=== PATIENT | male | born 1970 | race Hispanic/Latino ===

== ENCOUNTER 2019-10-18 15:24 | Inpatient (IN) | payer SELFPAY ==
--- NOTE | 2019-10-18 16:10 | RAD REPORT ---
EXAM DESCRIPTION: RAD - Chest Single View - 10/18/2019 4:02 pm CLINICAL HISTORY: CHEST PAIN COMPARISON: No comparisons TECHNIQUE: AP portable chest image was obtained 10/18/2019 4:02 pm . FINDINGS: Lung volumes are low. Right hemidiaphragm is elevated. No peripheral mass or consolidation . Large body habitus, portable technique and low lung volumes accentuate vasculature and lung marking s. Early failure, volume overload and interstitial infiltrates are easily masked. Heart size is normal. Trachea is midline. No measurable pleural effusion and no pneumothorax. No acu te bony abnormality seen. No acute aortic findings suspected. IMPRESSION: Limited portable study without peripheral mass or consolidation. Heart, vasculature and lung markings are all accentuated by the limitations of this examination. Robert y failure, volume overload and interstitial infiltrate can be masked.
[2019-10-18] MEDS ORDERED: MORPHINE 4 MG/ML SYR ONE (16:16)
[2019-10-18] MEDS ORDERED: MAGNE/ALUM HYDROXD 30 ML UCUP ONE (16:16)
[2019-10-18] MEDS ORDERED: ONDANSETRON 4 MG/2 ML VIAL ONE (16:16)
[2019-10-18] MEDS ORDERED: LIDOCAINE VISCOUS 2% SOLN 15 ML UDC ONE (16:16)
[2019-10-18 16:18] LABS: Absolute Lymphocytes (CBC) 0.7 K/uL (0.7-4.9); Basophils % 0.4 % (0-1.3); Hematocrit 46.7 % (39.6-49.0); Lymphocytes % 5.5 % (15.3-44.8); MPV 9.4 fL (7.6-11.3)
--- NOTE | 2019-10-18 16:35 | RAD REPORT ---
EXAM DESCRIPTION: US - Abdomen Exam Limited - 10/18/2019 4:21 pm CLINICAL HISTORY: ABD PAIN COMPARISON: No comparisons FINDINGS: No gallstones, sludge or other abnormalities within the gallbladder lumen. There is no wal l thickening or pericholecystic fluid. No common duct stone or biliary tree dilatation identified. IMPRESSION: Normal gallbladder and biliary tree ultrasound.
[2019-10-18 16:38] LABS: ALT/SGPT 37 U/L (12-78); AST/SGOT 34 U/L (15-37); Albumin 4.1 g/dL (3.4-5.0); Alkaline Phosphatase 84 U/L (45-117); BUN Blood Urea Nitrogen 15 mg/dL (7-18); Bicarbonate 24 mmol/L (21-32); Bilirubin Direct 0.2 mg/dL (0-0.2); Bilirubin Total 0.5 mg/dL (0.2-1.0); Glucose Level 145 mg/dL (74-106); Lipase 69 U/L (73-393); NT PRO-BNP 140 pg/mL (<125); Potassium 3.8 mmol/L (3.5-5.1); Protein, Total 8.6 g/dL (6.4-8.2); Sodium Level 134 mmol/L (136-145); Troponin (Emerg Dept Use Only) < 0.02 ng/mL (0.0-0.045)
--- NOTE | 2019-10-18 17:13 | RAD REPORT ---
EXAM DESCRIPTION: CT - Abdomen Pelvis W Contrast - 10/18/2019 5:06 pm CLINICAL HISTORY: ABD PAIN COMPARISON: No comparisons TECHNIQUE: Biphasic, helical CT imaging of the abdomen and pelvis was performed following 100 ml non -ionic IV contrast. No oral contrast given. All CT scans are performed using dose optimization technique as appropriate and may include automated exposure control or mA/KV adjustment according to patient size. FINDINGS: No suspicious findings in the lung bases. Scarring or atelectasis changes are present. Hea rt size is upper normal. No pericardial effusion. Liver is enlarged with a prominent left lobe. There is a prominent nodular contour pattern. No focal liver lesion is identifiable. No portal vein thrombus seen. Spleen and pancreas show no acute finding s. Numerous gallstones are present without acute cholecystitis CT findings. No biliary tree dilatatio n. Symmetric renal function is seen with no hydronephrosis or suspicious renal mass. No pyelonephritis o r acute parenchymal process. No bladder abnormalities. No adrenal abnormalities. No dilated bowel loops or bowel wall thickening. Appendix is not clearly identified. Appendicitis is not suspected. No free air, free fluid or inflammatory stranding. No hernia, mass or bulky lymphaden opathy. No suspicious bony findings. IMPRESSION: Cirrhosis or diffuse hepatic parenchymal disease with no focal liver lesions seen. Varices are seen in the upper abdomen but no ascites identified. Bowel gas pattern is nonspecific. No obstruction or acute finding seen. Mild enteritis is still possi ble. Multi stone cholelithiasis without CT findings of acute cholecystitis. No biliary dilatation. No acute finding.
[2019-10-18 17:31] LABS: Blood Morphology Comment NOT SEEN (NOT SEEN); Platelet Estimate ADEQ; Urine White Blood Cell Casts OK
[2019-10-18] MEDS ORDERED: MEPERIDINE HCL 50 MG/ML ONE (17:38)
--- NOTE | 2019-10-18 17:38 | ER ---
Nurse's Notes [facility] Name: Blane Marquez Age: 49 yrs Sex: Male : 1970 Arrival Date: 10/18/2019 Time: 15:25 Bed 27 Private MD: Diagnosis: Cholelithiasis;Intractable pain;Chest pain, unspecified Presentation: 10/18 15:37 Presenting complaint: Patient states: Chest pain started last night. Transition of ca1 care: patient was not received from another setting of care. Onset of symptoms was October 18, 2019. Risk Assessment: Do you want to hurt yourself or someone else? Patient reports no desire to harm self or others. Initial Sepsis Screen: Does the patient meet any 2 criteria? No. Patient's initial sepsis screen is negative. Does the patient have a suspected source of infection? No. Patient's initial sepsis screen is negative. Care prior to arrival: None. 15:37 Method Of Arrival: Wheelchair ca1 15:37 Acuity: MICHA 3 ca1 Triage Assessment: 16:21 General: Appears uncomfortable, Behavior is fussy. Pain: Complains of pain in abdomen ls4 Pain currently is 10 out of 10 on a pain scale. Cardiovascular: Reports chest pain, Denies diaphoresis, fatigue, lightheadedness, nausea, palpitations, shortness of breath, syncope, vomiting, Heart tones S1 S2 Capillary refill < 3 seconds Patient's skin is warm and dry. Rhythm is regular. Respiratory: Respiratory effort is even, unlabored, Respiratory pattern is regular, Breath sounds are clear bilaterally. GI: Abdomen is round non-distended. : No deficits noted. Derm: No deficits noted. Musculoskeletal: No deficits noted. Historical: - Allergies: 16:33 No Known Allergies; ls4 - Home Meds: 16:33 None [Active]; ls4 - PMHx: 16:33 None; ls4 - Immunization history:: Adult Immunizations up to date. - Coronavirus screen:: The patient has NOT traveled to [place] in the past 14 days. The patient has NOT had contact with known/suspected case of Coronavirus?. - Family history:: not pertinent. - Social history:: Smoking status: Patient denies any tobacco usage or history of. - Ebola Screening: : Patient negative for fever greater than or equal to 101.5 degrees Fahrenheit, and additional compatible Ebola Virus Disease symptoms Patient denies exposure to infectious person Patient denies travel to an Ebola-affected area in the 21 days before illness onset No symptoms or risks identified at this time. - Hospitalizations: : No recent hospitalization is reported. Screenin:56 Abuse screen: Denies threats or abuse. Denies injuries from another. Nutritional ls4 screening: No deficits noted. Tuberculosis screening: No symptoms or risk factors identified. Fall Risk None identified. Assessment: 15:30 General: Appears uncomfortable, Behavior is fussy. ls4 15:30 Pain: Complains of pain in abdomen Pain does not radiate. Pain Pain began suddenly, 1 ls4 day ago. Is continuous, Alleviated by nothing. Aggravated by eating, drinking, Noted to be guarding, moaning, restless. Neuro: No deficits noted. Cardiovascular: No deficits noted. Respiratory: No deficits noted. GI: Abdomen is round non-distended, obese, Bowel sounds present X 4 quads. Abd is soft Abdomen is tender to palpation in right upper quadrant, left upper quadrant and right lower quadrant. : No deficits noted. Derm: No deficits noted. 17:00 Reassessment: Patient and/or family updated on plan of care and expected duration. Pain ls4 level reassessed. Patient is alert, oriented x 3, equal unlabored respirations, skin warm/dry/pink. 18:00 Reassessment: Patient and/or family updated on plan of care and expected duration. Pain ls4 level reassessed. Patient is alert, oriented x 3, equal unlabored respirations, skin warm/dry/pink. 19:00 Reassessment: Patient and/or family updated on plan of care and expected duration. Pain ls4 level reassessed. Patient is alert, oriented x 3, equal unlabored respirations, skin warm/dry/pink. Patient states symptoms have improved. Vital Signs: 15:39 BP 150 / 86; Pulse 93; Resp 19 S; Pulse Ox 96% on R/A; ca1 16:45 BP 125 / 83; Pulse 88; Resp 16; Temp 99.0(O); Pulse Ox 97% on R/A; Pain 5/10; ls4 17:50 BP 130 / 68; Pulse 86; Resp 14; Pulse Ox 97% on R/A; Pain 5/10; ls4 18:30 BP 132 / 64; Pulse 79; Resp 16; Pulse Ox 95% on R/A; Pain 4/10; ls4 19:43 BP 137 / 82; Pulse 88; Resp 23; Pulse Ox 96% on R/A; Pain 8/10; ls4 ED Course: 15:25 Patient arrived in ED. rg4 15:29 Luis Enrique Tamez MD is Attending Physician. rn 15:37 Ivette Spears, JUAN is Primary Nurse. ls4 15:37 Arm band placed on right wrist. EKG completed in triage. Results shown to MD. ca1 15:38 Triage completed. ca1 15:48 Radiology exam delayed due to PT IS IN ULTRASOUND. az 15:56 labs and medication delayed. pt in ultrasound. ls4 15:56 Patient has correct armband on for positive identification. personal financial advisor on. Pulse ls4 ox on. NIBP on. Verbal reassurance given. Diet: Patient is NPO. 15:56 No provider procedures requiring assistance completed. Patient maintains SpO2 ls4 saturation greater than 95% on room air. 16:05 Initial lab(s) drawn, by me, sent to lab. Inserted saline lock: 20 gauge in left tm3 antecubital area, using aseptic technique. 16:17 Basic Metabolic Panel Sent. ls4 17:37 Gris Grimes MD is Hospitalizing Provider. rn 18:27 CT Abd/Pelvis - IV Contrast Only Sent. ls4 19:45 Patient admitted, IV remains in place. ls4 Administered Medications: 16:15 Drug: morphine 4 mg Route: IVP; Site: left forearm; ls4 16:45 Follow up: Response: No adverse reaction; No change in condition ls4 16:15 Drug: Zofran 4 mg Route: IVP; Site: left forearm; ls4 16:45 Follow up: Response: No adverse reaction; Marked relief of symptoms ls4 16:17 Drug: GI Cocktail without - (Maalox Suspension 30 ml, Lidocaine Liquid 2 % 15 ls4 ml) Route: PO; 16:30 Follow up: Response: No adverse reaction ls4 17:35 Drug: Demerol 50 mg Route: IVP; Site: right antecubital; ls4 18:00 Follow up: Response: No adverse reaction ls4 18:00 Drug: Zosyn 3.375 grams Route: IVPB; Infused Over: 60 mins; Site: right antecubital; ls4 10/19 01:31 Follow up: IV Status: Completed infusion; IV Intake: 100ml ls4 Intake: : IV: 100ml; Total: 100ml. ls4 Outcome: 10/18 17:37 Decision to Hospitalize by Provider. rn 19:44 Admitted to Tele accompanied by tech, via stretcher, room 429, Report called to ls4 JENNIFER MARTINEZ 19:44 Condition: good 19:44 Discharge instructions given to patient, family, Instructed on discharge instructions, follow up and referral plans. medication usage, Demonstrated understanding of instructions, follow-up care, medications. 20:28 Patient left the ED. ls4 Signatures: Darek Sandoval tm3 Luis Enrique Tamez MD MD rn Garcia, Rubi rg4 Shawanda Roberts Lisa, RN RN ls4 Zabrina Singleton RN RN ca1 Corrections: (The following items were deleted from the chart) 10/19 01:31 10/18 19:00 IV Status: Completed infusion 4 4
--- NOTE | 2019-10-18 17:38 | EDPHYS ---
Physician Documentation [facility] Name: Blane Marquez Age: 49 yrs Sex: Male : 1970 Arrival Date: 10/18/2019 Time: 15:25 Bed 27 Private MD: ED Physician Luis Enrique Tamez HPI: 10/18 15:37 This 49 yrs old Male presents to ER via Unassigned with complaints of Chest rn Pain. 15:37 The patient or guardian reports chest pain that is located primarily in the substernal rn area. The patient or guardian reports chest pain that is located primarily in the epigastric area. Onset: last night. The pain does not radiate. Associated signs and symptoms: Pertinent positives: abdominal pain, nausea, vomiting, Pertinent negatives: cough, palpitations, recent travel, shortness of breath. The chest pain is described as sharp, stabbing. Duration: The patient or guardian reports multiple episodes, that are intermittent. Modifying factors: The symptoms are alleviated by nothing. the symptoms are aggravated by palpation of area. Severity of pain: At its worst the pain was moderate in the emergency department the pain is unchanged. The patient has not experienced similar symptoms in the past. Reports chest pain and abd pain that began last night, reports intermittent, sharp, non-radiating, not really helped with antacid. No trauma. No fever/cough/sob. . Historical: - Allergies: 16:33 No Known Allergies; ls4 - Home Meds: 16:33 None [Active]; ls4 - PMHx: 16:33 None; ls4 - Immunization history:: Adult Immunizations up to date. - Coronavirus screen:: The patient has NOT traveled to [place] in the past 14 days. The patient has NOT had contact with known/suspected case of Coronavirus?. - Family history:: not pertinent. - Social history:: Smoking status: Patient denies any tobacco usage or history of. - Ebola Screening: : Patient negative for fever greater than or equal to 101.5 degrees Fahrenheit, and additional compatible Ebola Virus Disease symptoms Patient denies exposure to infectious person Patient denies travel to an Ebola-affected area in the 21 days before illness onset No symptoms or risks identified at this time. - Hospitalizations: : No recent hospitalization is reported. ROS: 15:37 Constitutional: Negative for fever, chills, and weight loss, Eyes: Negative for injury, rn pain, redness, and discharge, Neck: Negative for injury, pain, and swelling, Cardiovascular: + chest pain Respiratory: Negative for shortness of breath, cough, wheezing, and pleuritic chest pain, Abdomen/GI: + abd pain/nausea/vomiting MS/Extremity: Negative for injury and deformity, Skin: Negative for injury, rash, and discoloration, Neuro: Negative for headache, weakness, numbness, tingling, and seizure. Exam: 15:37 Constitutional: This is a well developed, well nourished patient who is awake, alert, rn appears uncomfortable, intermittent epressions of pain. Head/Face: Normocephalic, atraumatic. Eyes: Pupils equal round and reactive to light, extra-ocular motions intact. Lids and lashes normal. Conjunctiva and sclera are non-icteric and not injected. Cornea within normal limits. Periorbital areas with no swelling, redness, or edema. Cardiovascular: Regular rate and rhythm. No pulse deficits. Respiratory: No increased work of breathing, no retractions or nasal flaring. Abdomen/GI: soft, + RUQ/epigastric tenderness MS/ Extremity: Pulses equal, no cyanosis. Neurovascular intact. Full, normal range of motion. Equal circumference. Neuro: Awake and alert, GCS 15, oriented to person, place, time, and situation. Cranial nerves II-XII grossly intact. Motor strength 5/5 in all extremities. Sensory grossly intact. 15:42 ECG was reviewed by the Attending Physician. rn Vital Signs: 15:39 BP 150 / 86; Pulse 93; Resp 19 S; Pulse Ox 96% on R/A; ca1 16:45 BP 125 / 83; Pulse 88; Resp 16; Temp 99.0(O); Pulse Ox 97% on R/A; Pain 5/10; ls4 17:50 BP 130 / 68; Pulse 86; Resp 14; Pulse Ox 97% on R/A; Pain 5/10; ls4 18:30 BP 132 / 64; Pulse 79; Resp 16; Pulse Ox 95% on R/A; Pain 4/10; ls4 19:43 BP 137 / 82; Pulse 88; Resp 23; Pulse Ox 96% on R/A; Pain 8/10; ls4 MDM: 15:29 Patient medically screened. rn 17:33 Differential diagnosis: acute pericarditis, coronary artery disease chest wall pain, rn cholecystitis, Cholelithiasis costochondritis, esophagitis, gastritis, gastroesophageal reflux disease (GERD), pericarditis. Data reviewed: vital signs, nurses notes, lab test result(s), radiologic studies, CT scan, ultrasound, and as a result, I will admit patient. Counseling: I had a detailed discussion with the patient and/or guardian regarding: the historical points, exam findings, and any diagnostic results supporting the discharge/admit diagnosis, lab results, radiology results, the need for further work-up and treatment in the hospital. Response to treatment: There is no appreciated change of the patient's symptoms at this time, and as a result, I will admit patient. 17:35 ED course: Pt's pain not controlled, still in a lot of pain, U/S and ct abdomen show rn cholelithiasis without overt cholecystitis, mild elevation of WBC, trop and ecg unremarkable. Consulted with Dr. Felix, will admit to hospitalist for further w/u and consult Dr. Felix, who recommends zosyn and will eval patient. . 10/18 15:35 Order name: Basic Metabolic Panel; Complete Time: 16:47 10/18 15:35 Order name: CBC with Diff; Complete Time: 17:35 10/18 15:35 Order name: LFT's; Complete Time: 16:47 10/18 15:35 Order name: NT PRO-BNP; Complete Time: 16:47 10/18 15:35 Order name: Troponin (emerg Dept Use Only); Complete Time: 16:47 rn 10/18 15:35 Order name: Lipase; Complete Time: 16:47 rn 18 15:35 Order name: XRAY Chest (1 view) rn 10/18 15:35 Order name: US Abdomen Limited rn 10/18 15:35 Order name: CT Abd/Pelvis - IV Contrast Only rn 10/18 17:32 Order name: RAD; Complete Time: 17:35 EDMI 10/18 17:32 Order name: US; Complete Time: 17:35 EDMI 10/18 17:32 Order name: CBC Smear Scan; Complete Time: 17:35 EDMI 10/18 19:06 Order name: CT; Complete Time: 07:07 EDMI 10/18 15:35 Order name: EKG; Complete Time: 15:37 rn 10/18 15:35 Order name: Cardiac monitoring; Complete Time: 17:59 rn 10/18 15:35 Order name: EKG - Nurse/Tech; Complete Time: 17:59 rn 10/18 15:35 Order name: IV Saline Lock; Complete Time: 17:59 rn 10/18 15:35 Order name: Labs collected and sent; Complete Time: 17:59 rn 10/18 15:35 Order name: O2 Per Protocol; Complete Time: 17:59 rn 10/18 15:35 Order name: O2 Sat Monitoring; Complete Time: 17:59 rn EC:42 Rate is 82 beats/min. Rhythm is regular. QRS Regan is Normal. CO interval is normal. QRS rn interval is normal. QT interval is normal. No Q waves. T waves are Normal. No ST changes noted. Clinical impression: Normal ECG. Interpreted by me. Reviewed by me. Administered Medications: 16:15 Drug: morphine 4 mg Route: IVP; Site: left forearm; ls4 16:45 Follow up: Response: No adverse reaction; No change in condition ls4 16:15 Drug: Zofran 4 mg Route: IVP; Site: left forearm; ls4 16:45 Follow up: Response: No adverse reaction; Marked relief of symptoms ls4 16:17 Drug: GI Cocktail without - (Maalox Suspension 30 ml, Lidocaine Liquid 2 % 15 ls4 ml) Route: PO; 16:30 Follow up: Response: No adverse reaction ls4 17:35 Drug: Demerol 50 mg Route: IVP; Site: right antecubital; ls4 18:00 Follow up: Response: No adverse reaction ls4 18:00 Drug: Zosyn 3.375 grams Route: IVPB; Infused Over: 60 mins; Site: right antecubital; ls4 10/19 01:31 Follow up: IV Status: Completed infusion; IV Intake: 100ml ls4 Disposition: 10/18/19 17:37 Hospitalization ordered by Gris Grimes for Observation. Preliminary diagnosis are Cholelithiasis, Intractable pain, Chest pain, unspecified. - Bed requested for Telemetry/MedSurg (observation). - Status is Observation. ls4 - Condition is Stable. - Problem is new. - Symptoms are unchanged. Signatures: Dispatcher [employer] EDMS Luis Enrique Tamez MD MD rn Stewart, Lisa, RN RN ls4 Zabrina Singleton RN RN [facility] Olegario Sommer dh4 Corrections: (The following items were deleted from the chart) 10/18 18:43 17:37 Hospitalization Ordered by Gris Grimes MD for Observation. Preliminary diagnosis dh4 is Cholelithiasis; Intractable pain; Chest pain, unspecified. Bed requested for Telemetry/MedSurg (observation). Status is Observation. Condition is Stable. Problem is new. Symptoms are unchanged. rn 20:28 18:43 10/18/2019 17:37 Hospitalization Ordered by Gris Grimes MD for Observation. ls4 Preliminary diagnosis is Cholelithiasis; Intractable pain; Chest pain, unspecified. Bed requested for Telemetry/MedSurg (observation). Status is Observation. Condition is Stable. Problem is new. Symptoms are unchanged. 4
[2019-10-18] MEDS ORDERED: NACHLORIDE 0.45% 0 ML IV ONE (17:40)
[2019-10-18] MEDS ORDERED: NA CHLORIDE 0.9% 1,000 ML ONE (17:40)
[2019-10-18] MEDS ORDERED: PIPER/TAZO/NS 3.375gm 3.375 GM/100 ML BAG ONE (18:11)
--- NOTE | 2019-10-18 18:35 | P.HP ---
Certification for Inpatient Patient admitted to: Inpatient With expected LOS: >2 Midnights Patient will require the following post-hospital care: None Practitioner: I am a practitioner with admitting privileges, knowledge of patient current condition, hospital course, and medical plan of care. Services: Services provided to patient in accordance with Admission requirements found in Title 42 Section 412.3 of the Code of Federal Regulations Patient History Date of Service: 10/18/19 Primary Care Provider: None Reason for admission: Abdominal pain History of Present Illness: Patient is a 49-year-old male with no significant past medical history chronic smoker and drinker who comes into the hospital with sudden onset of generalized abdominal pain after eating. Patient's pain radiates to the back right upper quadrant and to the chest. Patient's symptoms are constant moderate progressively worsening. Patient does report multiple episodes of nausea and vomiting. 1 episode of diarrhea. No ill contacts. No usual foods or travel outside the country. No fever chills. Patient came into the ER for further evaluation. In the ER his vital signs were stable he was afebrile. His workup revealed elevated white blood cell count. CT scan showed cirrhosis and cholelithiasis. Abdominal ultrasound did not show any biliary dilatation. General surgery was consulted by the ER recommended IV antibiotics and admission for further observation. When seen in the ER he was awake alert oriented x3 in some moderate pain. His pain was not able to be controlled despite Demerol and morphine. Home medications list reviewed: Yes - Past Medical/Surgical History Past Medical History: Patient denies medical history -: Surgery on the foot after a brown recluse spider bite - Family History Mother -: Heart disease, Diabetes, Other (see notes) ( of aortic aneurysm) - Social History Smoking Status: Light Tobacco smoker (1-9 cigarettes/day) Smoking therapy provided: Yes Alcohol use: Yes Place of Residence: Home Review of Systems 10-point ROS is otherwise unremarkable Gastrointestinal: As per HPI Physical Examination - Vital Signs Blood Pressure: 150/86 Pulse: 93 Respirations: 19 Pulse Ox (%): 96 - Physical Exam General: Alert, Oriented x3, Moderate distress, Obese HEENT: Atraumatic, PERRLA, Other (Dry mucous membranes), EOMI, Sclerae nonicteric Neck: Supple, JVD not distended Respiratory: Clear to auscultation bilaterally, Normal air movement Cardiovascular: No edema, Normal pulses, Regular rate/rhythm, Normal S1 S2 Gastrointestinal: Normal bowel sounds, Soft and benign, Non-distended, No rebound, No guarding, Tenderness Musculoskeletal: No clubbing, No erythema, No tenderness Integumentary: No rashes, No erythema Neurological: Normal speech, Normal strength at 5/5 x4 extr, Normal tone, Cranial nerves 3-12 intact, Normal affect - Studies Laboratory Data (last 24 hrs) 10/18/19 16:05: WBC 11.9 H, Hgb 15.3, Hct 46.7, Plt Count 160 10/18/19 16:05: Sodium 134 L, Potassium 3.8, BUN 15, Creatinine 0.82, Glucose 145 H, Total Bilirubin 0.5, AST 34, ALT 37, Alkaline Phosphatase 84, Lipase 69 L Imagings Data: IMPRESSION: Cirrhosis or diffuse hepatic parenchymal disease with no focal liver lesions seen. Varices are seen in the upper abdomen but no ascites identified. Bowel gas pattern is nonspecific. No obstruction or acute finding seen. Mild enteritis is still possible. Multi stone cholelithiasis without CT findings of acute cholecystitis. No biliary dilatation. No acute finding. IMPRESSION: Normal gallbladder and biliary tree ultrasound Assessment and Plan - Plan 1. Acute intractable generalized abdominal pain. Likely due to cholelithiasis and acute cholecystitis. Will start on Zosyn. IV fluids and keep NPO for now. General surgery has been consulted. 2. Chest pain. Likely atypical will obtain serial cardiac enzymes. 3. Hyperglycemia without diagnosis of diabetes. Patient is at risk for diabetes will check hemoglobin A1c. 4. Alcoholic liver cirrhosis. Counseled CT scan shows cirrhosis 5. Alcohol dependence. Start on multi vitamins 6. Nicotine dependence with cigarette smoking continuous. Counseled for less than 10 min 7. Obesity counseled DVT prophylaxis with SCDs. No chemical anticoagulation due to possible surgery in a.m. Discharge Plan: Home Plan to discharge in: 48 Hours - Advance Directives Does patient have a Living Will: No Does patient have a Durable POA for Healthcare: No - Code Status/Comfort Care Code Status Assessed: Yes
[2019-10-18] MEDS ORDERED: ONDANSETRON 4 MG/2 ML VIAL IV PRN (20:30)
[2019-10-18] MEDS ORDERED: MORPHINE 2 MG/ML SYR IV PRN (20:30)
[2019-10-18] MEDS ORDERED: LORazepam 2 MG/ML VIAL IV PRN (20:30)
[2019-10-18 20:36] VITALS: BMI 32.1
[2019-10-18] MEDS: D5 0.45 NS 1,000 ML IV SCH (20:50)
[2019-10-18] MEDS: MORPHINE 2 MG/ML SYR IV PRN (21:00)
[2019-10-18] MEDS ORDERED: INSULIN -REGULAR HUMAN 50 UNIT/0.5 ML ML SQ SCH (21:00)
[2019-10-18] MEDS ORDERED: KCL 20 MEQ/100 mL IVPB 20 MEQ/100 ML BAG IV SCH (22:00)
[2019-10-19] MEDS ORDERED: NA CHLORIDE 0.9% 100 ML IV ONE (00:45)
[2019-10-19] MEDS ORDERED: PIPERACIL/TAZO 3.375 GM VIAL IV ONE (00:50)
[2019-10-19] MEDS ORDERED: PIPER/TAZO/NS 3.375gm 3.375 GM/100 ML BAG IVPB SCH (01:00)
[2019-10-19] MEDS: MORPHINE 2 MG/ML SYR IV PRN ×5 (01:02→21:30)
[2019-10-19] MEDS: ACETAMINOPHEN 650MG/RECT SUPP RECT PRN (01:02)
[2019-10-19] MEDS: D5 0.45 NS 1,000 ML IV SCH ×3 (05:08→20:30)
[2019-10-19] MEDS: INSULIN -REGULAR HUMAN 50 UNIT/0.5 ML ML SQ SCH ×4 (05:08→17:35)
[2019-10-19 05:59] LABS: Basophils % 0.5 % (0-1.3); Hematocrit 45.3 % (39.6-49.0); Lymphocytes % 10.5 % (15.3-44.8); MPV 10.4 fL (7.6-11.3); RBC Red Blood Cell Count 4.75 M/uL (4.33-5.43)
[2019-10-19 06:37] LABS: ALT/SGPT 39 U/L (12-78); AST/SGOT 40 U/L (15-37); Albumin 3.7 g/dL (3.4-5.0); Alkaline Phosphatase 67 U/L (45-117); BUN Blood Urea Nitrogen 10 mg/dL (7-18); Bicarbonate 25 mmol/L (21-32); Bilirubin Total 1.1 mg/dL (0.2-1.0); Glucose Level 109 mg/dL (74-106); Magnesium 2.4 mg/dL (1.8-2.4); Potassium 3.9 mmol/L (3.5-5.1); Protein, Total 7.6 g/dL (6.4-8.2); Sodium Level 135 mmol/L (136-145); Troponin I < 0.02 ng/mL (0.0-0.045)
[2019-10-19] MEDS: FOLIC ACID 1 MG TABLET PO SCH (07:23)
[2019-10-19] MEDS: THIAMINE HCL 100 MG TABLET PO SCH (07:23)
--- NOTE | 2019-10-19 07:51 | EKG ---
Test Date: 2019-10-18 Test Time: 15:38:40 Hog Killer: ISABELLA MEASUREMENT RESULTS: Intervals: Rate: 82 ME: 152 QRSD: 90 QT: 402 QTc: 469 [place]: P: 45 ME: 152 QRS: -19 T: 19 INTERPRETIVE STATEMENTS: Normal sinus rhythm with sinus arrhythmia Normal ECG No previous ECG available for comparison Electronically Signed On 10-19-19 07:50:09 OIL RECOVERY UNIT OPERATOR by Zach Ferreira
[2019-10-19] MEDS ORDERED: INFLUENZA VACCINE (for 3y+) 0.5 ML DOSE IMVAC ONE (08:00)
[2019-10-19] MEDS ORDERED: KCL 20 MEQ/100 mL IVPB 20 MEQ/100 ML BAG IV SCH (08:00)
[2019-10-19] MEDS ORDERED: KETOROLAC 30 MG/ML INJ IV PRN (08:14)
[2019-10-19] MEDS: PIPER/TAZO/NS 3.375gm 3.375 GM/100 ML BAG IVPB SCH ×2 (11:53→17:18)
--- NOTE | 2019-10-19 12:28 | P.PN ---
Subjective Date of Service: 10/19/19 Primary Care Provider: None Chief Complaint: Abdominal pain Subjective: Worsening Patient seen and examined chart reviewed and case discussed with RN and Dr. Felix. Patient still complaining of significant amount of abdominal pain. Plan for HIDA scan today Review of Systems 10-point ROS is otherwise unremarkable Gastrointestinal: As per HPI Physical Examination - Vital Signs Temperature: 98.3 F Blood Pressure: 114/62 Pulse: 82 Respirations: 20 Pulse Ox (%): 95 - Physical Exam General: Alert, Oriented x3, Mild distress, Obese, Other (Ill-appearing male) HEENT: Atraumatic, PERRLA, EOMI Neck: Supple, JVD not distended Respiratory: Clear to auscultation bilaterally, Normal air movement Cardiovascular: No edema, Normal pulses, Regular rate/rhythm, Normal S1 S2 Gastrointestinal: Normal bowel sounds, No rebound, Distended, Tenderness, Guarding Musculoskeletal: No tenderness Integumentary: No rashes, No erythema Neurological: Normal speech, Normal strength at 5/5 x4 extr, Normal tone, Cranial nerves 3-12 intact, Normal affect - Studies Laboratory Data (last 24 hrs) 10/18/19 16:05: WBC 11.9 H, Hgb 15.3, Hct 46.7, Plt Count 160 10/18/19 16:05: Sodium 134 L, Potassium 3.8, BUN 15, Creatinine 0.82, Glucose 145 H, Total Bilirubin 0.5, AST 34, ALT 37, Alkaline Phosphatase 84, Lipase 69 L Medications List Reviewed: Yes Assessment And Plan - Plan 1. Acute intractable generalized abdominal pain. Likely due to cholelithiasis and possibly acute cholecystitis versus enteritis. Continue Zosyn. IV fluids and keep NPO for now. General surgery has been consulted. HIDA scan today. Possible surgery 2. Chest pain. Likely atypical. ACS has been ruled out 3. Hyperglycemia without diagnosis of diabetes. hemoglobin A1c is 5 4. Alcoholic liver cirrhosis. Counseled CT scan shows cirrhosis 5. Alcohol dependence. Start on multi vitamins 6. Nicotine dependence with cigarette smoking continuous. Counseled for less than 10 min 7. Obesity BMI 32 counseled DVT prophylaxis with SCDs. No chemical anticoagulation due to possible surgery in a.m. Follow up with HIDA scan. Adjust pain medications Discharge Plan: Home Plan to discharge in: 48 Hours
--- NOTE | 2019-10-19 12:49 | CON ---
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 He states the pain was in bilateral lower flanks in the left lowe r quadrant, right lower quadrant and radiated up through in a U shape to the epigastrium and right up per quadrant. It radiates to his back and upper quadrant of the chest. He states the pain goes all the way into his chest bilaterally. He feels that it may be slightly worse in the right upper side a nd epigastrium. Constant. It is worse with movement. He has had multiple episodes of nausea, vomit ing. One episode of loose watery diarrhea. No ill contacts. No sick contacts. No recent travel. No new food exposures. No fever, chills. In the ER, he was evaluated. Past Medical History: Unknown as he has not seen a doctor in over 5 years, but he states he had brow n recluse spider bite. Past Surgical History: Surgery/debridement for a brown recluse spider bite of the right lower extrem ity years ago, he cannot remember how long ago. Family History: His mother had heart disease, diabetes and of an aortic aneurysm. Social History: He is a half pack per day smoker. Alcohol, he claims that he is down to 2 beers a d ay, but was drinking 8 or more beers a day in the past. Recreational drug use, he claims he has not used marijuana in about 3 to 4 weeks. DICTATION ENDS HERE. SARAN/JOHN Voice ID: [id number] Report ID: [id number]
--- NOTE | 2019-10-19 14:41 | RAD REPORT ---
EXAM DESCRIPTION: NM - Hepatobiliary System Imagin - 10/19/2019 2:33 pm CLINICAL HISTORY: abdominal pain COMPARISON: Abdomen Pelvis W Contrast dated 10/18/2019 TECHNIQUE: The patient was administered 6.3 mCi Tc99m Choletec. Imaging of the right upper quadrant was performed initially for up to 60 minutes. The gallbladder was not visualized despite administration of morphine as well as significant delayed imaging. FINDINGS: Generalized poor hepatic uptake and pool is noted. Normal visualization of biliary and sma ll bowel activity. The gallbladder was not visualized. The patient was administered morphine and delayed imaging was obt ained, with no gallbladder visualization. IMPRESSION: Nonvisualized gallbladder. This may be result of poor hepatic function, prolonged fastin g / recent meal or cholecystitis.
[2019-10-20] MEDS: PIPER/TAZO/NS 3.375gm 3.375 GM/100 ML BAG IVPB SCH ×5 (00:02→23:55)
[2019-10-20] MEDS: MORPHINE 2 MG/ML SYR IV PRN ×2 (01:35→05:42)
[2019-10-20] MEDS: D5 0.45 NS 1,000 ML IV SCH ×4 (01:36→19:52)
[2019-10-20 04:14] LABS: Absolute Lymphocytes (CBC) 1.2 K/uL (0.7-4.9); Basophils % 0.5 % (0-1.3); Hematocrit 44.2 % (39.6-49.0); Lymphocytes % 10.4 % (15.3-44.8); MPV 9.5 fL (7.6-11.3); RBC Red Blood Cell Count 4.56 M/uL (4.33-5.43)
[2019-10-20 04:39] LABS: ALT/SGPT 34 U/L (12-78); AST/SGOT 31 U/L (15-37); Albumin 3.2 g/dL (3.4-5.0); Alkaline Phosphatase 64 U/L (45-117); BUN Blood Urea Nitrogen 8 mg/dL (7-18); Bicarbonate 27 mmol/L (21-32); Bilirubin Total 1.3 mg/dL (0.2-1.0); Glucose Level 120 mg/dL (74-106); Protein, Total 7.3 g/dL (6.4-8.2); Sodium Level 136 mmol/L (136-145)
[2019-10-20] MEDS: INSULIN -REGULAR HUMAN 50 UNIT/0.5 ML ML SQ SCH ×4 (05:38→18:00)
[2019-10-20] MEDS: THIAMINE HCL 100 MG TABLET PO SCH (08:48)
[2019-10-20] MEDS: FOLIC ACID 1 MG TABLET PO SCH (08:48)
[2019-10-20] MEDS: HYDROCODONE/APAP 7.5/325 MG TAB PO PRN ×4 (10:47→23:55)
--- NOTE | 2019-10-20 11:35 | P.PN ---
Subjective Date of Service: 10/20/19 Primary Care Provider: None Chief Complaint: Abdominal pain Subjective: No new changes Patient seen and examined chart reviewed and case discussed with RN and Dr. Felix. Patient still complaining of significant amount of abdominal pain. Patient reports sweats today. Likely getting into alcohol withdrawal Review of Systems 10-point ROS is otherwise unremarkable General: Sweats, As per HPI Gastrointestinal: As per HPI Physical Examination - Vital Signs Temperature: 98.7 F Blood Pressure: 106/65 Pulse: 74 Respirations: 18 Pulse Ox (%): 96 - Physical Exam General: Alert, Oriented x3, Acute distress, Obese, Other (Ill-appearing male) HEENT: Atraumatic, PERRLA, EOMI Neck: Supple, JVD not distended Respiratory: Clear to auscultation bilaterally, Normal air movement Cardiovascular: No edema, Normal pulses, Regular rate/rhythm, Normal S1 S2 Gastrointestinal: Normal bowel sounds, Soft and benign, No rebound, No guarding , Distended, Tenderness Musculoskeletal: No tenderness Integumentary: No rashes, No erythema Neurological: Normal speech, Normal strength at 5/5 x4 extr, Normal tone, Normal affect - Studies Laboratory Tests 10/18/19 10/18/19 16:05 16:05 WBC 11.9 H RBC 4.90 Hgb 15.3 Hct 46.7 MCV 95.4 MCH 31.3 MCHC 32.8 RDW 13.4 Plt Count 160 MPV 9.4 Neutrophils % 90.0 H Lymphocytes % 5.5 L Monocytes % 4.0 Eosinophils % 0.1 Basophils % 0.4 Absolute Neutrophils 10.7 H Absolute Lymphocytes 0.7 Absolute Monocytes 0.5 Absolute Eosinophils 0.0 Absolute Basophils 0.0 Morphology Comment Not seen Sodium 134 L Potassium 3.8 Chloride 102 Carbon Dioxide 24 BUN 15 Creatinine 0.82 Estimated GFR > 90 Glucose 145 H Calcium 9.0 Total Bilirubin 0.5 Direct Bilirubin 0.2 AST 34 ALT 37 Alkaline Phosphatase 84 Rapid Troponin I < 0.02 NT-Pro-B Natriuret Pep 140 H Serum Total Protein 8.6 H Albumin 4.1 Globulin 4.5 H Albumin/Globulin Ratio 0.9 L Lipase 69 L Imagings Data: EXAM DESCRIPTION: NM - Hepatobiliary System Imagin - 10/19/2019 2:33 pm CLINICAL HISTORY: abdominal pain COMPARISON: Abdomen Pelvis W Contrast dated 10/18/2019 TECHNIQUE: The patient was administered 6.3 mCi Tc99m Choletec. Imaging of the right upper quadrant was performed initially for up to 60 minutes. The gallbladder was not visualized despite administration of morphine as well as significant delayed imaging. FINDINGS: Generalized poor hepatic uptake and pool is noted. Normal visualization of biliary and small bowel activity. The gallbladder was not visualized. The patient was administered morphine and delayed imaging was obtained, with no gallbladder visualization. IMPRESSION: Nonvisualized gallbladder. This may be result of poor hepatic function, prolonged fasting / recent meal or cholecystitis. Medications List Reviewed: Yes Assessment And Plan - Plan Assessment and plan 1. Acute intractable generalized abdominal pain. Likely due to cholelithiasis and biliary colic and enteritis as seen on CT scan. The HIDA scan report states nonvisualized gallbladder. Likely related to his significant liver cirrhosis Continue Zosyn. IV fluids and start on clear liquid diet. Appreciate Dr. Felix's input 2. Chest pain. Likely atypical. ACS has been ruled out 3. Hyperglycemia without diagnosis of diabetes. hemoglobin A1c is 5 4. Alcoholic liver cirrhosis. Counseled CT scan shows cirrhosis 5. Alcohol dependence. Continue multi vitamins. Patient likely getting in to withdrawal. He has symptoms of withdrawal including sweats. Continue with Ativan p.r.n.. Monitor using CIWA protocol 6. Nicotine dependence with cigarette smoking continuous. Counseled 7. Obesity BMI 32 counseled DVT prophylaxis with SCDs. No plans for surgical intervention. Will start on Lovenox. Advance diet as tolerated Likely Dc in the next 24 hr if continues to improve Discharge Plan: Home Plan to discharge in: 24 Hours - Code Status/Comfort Care Code Status Assessed: Yes
--- NOTE | 2019-10-20 14:19 | P.PN ---
Subjective Date of Service: 10/20/19 Primary Care Provider: None Chief Complaint: Abdominal pain Subjective: Improving (Patient states he feels much better, RUQ, epigastric pain improved, tolerated clears well, ambulatory) Physical Examination - Vital Signs Temperature: 98 F Blood Pressure: 117/75 Pulse: 84 Respirations: 18 Pulse Ox (%): 95 - Physical Exam General: Alert, In no apparent distress, Cooperative Gastrointestinal: Soft and benign, Non-distended, No rebound, No guarding ( minimal RUQ abdominal pain, negative murphys, no rebound) - Studies Medications List Reviewed: Yes Assessment And Plan - Plan Advance diet as tolerated to low fat, gallbladder diet - continue zosyn - continue IV fluids - continue medical management - no surgical intervention required at this time
[2019-10-21] MEDS: MORPHINE 2 MG/ML SYR IV PRN ×3 (00:41→19:28)
[2019-10-21] MEDS: HYDROCODONE/APAP 7.5/325 MG TAB PO PRN ×3 (04:06→21:05)
[2019-10-21] MEDS: D5 0.45 NS 1,000 ML IV SCH ×2 (05:10→12:20)
[2019-10-21] MEDS: PIPER/TAZO/NS 3.375gm 3.375 GM/100 ML BAG IVPB SCH ×3 (05:10→17:06)
[2019-10-21 05:43] LABS: Absolute Lymphocytes (CBC) 1.1 K/uL (0.7-4.9); Basophils % 0.4 % (0-1.3); Hematocrit 40.2 % (39.6-49.0); Lymphocytes % 10.3 % (15.3-44.8); MPV 9.4 fL (7.6-11.3); RBC Red Blood Cell Count 4.18 M/uL (4.33-5.43)
[2019-10-21] MEDS: INSULIN -REGULAR HUMAN 50 UNIT/0.5 ML ML SQ SCH ×3 (06:00→11:55)
[2019-10-21 06:05] LABS: ALT/SGPT 48 U/L (12-78); AST/SGOT 69 U/L (15-37); Albumin 2.8 g/dL (3.4-5.0); Alkaline Phosphatase 95 U/L (45-117); BUN Blood Urea Nitrogen 6 mg/dL (7-18); Bicarbonate 27 mmol/L (21-32); Bilirubin Total 1.5 mg/dL (0.2-1.0); Glucose Level 114 mg/dL (74-106); Potassium 4.1 mmol/L (3.5-5.1); Protein, Total 6.9 g/dL (6.4-8.2); Sodium Level 134 mmol/L (136-145)
[2019-10-21 07:03] LABS: Blood Morphology Comment NOT SEEN (NOT SEEN); Platelet Estimate DECR
[2019-10-21] MEDS: FOLIC ACID 1 MG TABLET PO SCH (07:51)
[2019-10-21] MEDS: THIAMINE HCL 100 MG TABLET PO SCH (07:51)
[2019-10-21] MEDS ORDERED: NA CHLORIDE 0.9% 1,000 ML ONE (08:08)
[2019-10-21] MEDS ORDERED: BUPIVACA 0.5%/EPI 0.0005%/PF 30 ML VIAL ONE (08:45)
[2019-10-21] MEDS ORDERED: BUPIVACA 0.5%/EPI 0.0005%/PF 10 ML VIAL ONE (08:59)
[2019-10-21] MEDS ORDERED: LIDOCAINE 1% MPF 5 ML VIAL ONE (09:00)
[2019-10-21] MEDS ORDERED: FENTANYL CITR 250 MCG/5 ML ONE (09:00)
[2019-10-21] MEDS ORDERED: MIDAZOLAM HCL 2 MG/2 ML INJ ONE ×2 (09:00)
[2019-10-21] MEDS ORDERED: propofoL 200 MG/20 ML VIAL IV ONE (09:00)
[2019-10-21] MEDS ORDERED: ROCURONIUM 50 MG/5 ML VIAL IV ONE ×2 (09:00→10:03)
[2019-10-21] MEDS ORDERED: GLYCOPYRROLATE 0.2 MG/ML SYR ONE ×2 (09:43→10:08)
[2019-10-21] MEDS ORDERED: ONDANSETRON 4 MG/2 ML VIAL ONE (10:03)
[2019-10-21] MEDS ORDERED: NEOSTIGMINE 1 MG/ML -5 ML ONE (10:03)
--- NOTE | 2019-10-21 10:13 | P.OP ---
Preoperative diagnosis: Acute calculous Cholecystitis Postoperative diagnosis: Acute calculous Cholecystitis Primary procedure: Laparoscopic Cholecystectomy Anesthesia: GETA + Local Estimated blood loss: <10cc Specimen: Gallbladder Findings: Inflammed GB, Cirrhosis Complications: None Implants: Alicia 3Gram Coagulation Powder Transferred to: Recovery Room Condition: Good
[2019-10-21] MEDS: HYDROMORPHONE HCL 1 MG/ML INJ ONE ×3 (10:40→10:52)
--- NOTE | 2019-10-21 13:31 | P.PN ---
Subjective Date of Service: 10/21/19 Primary Care Provider: None Chief Complaint: Abdominal pain Subjective: Improving Patient seen and examined chart reviewed and case discussed with RN and Dr. Felix. Patient went for laparoscopic cholecystectomy today. Doing well postoperatively. Review of Systems 10-point ROS is otherwise unremarkable Gastrointestinal: As per HPI Physical Examination - Vital Signs Temperature: 97.3 F Blood Pressure: 144/86 Pulse: 72 Respirations: 18 Pulse Ox (%): 97 - Physical Exam General: Alert, Oriented x3, Mild distress, Obese, Other (Ill-appearing male) HEENT: Atraumatic, PERRLA, EOMI Neck: Supple Respiratory: Clear to auscultation bilaterally, Normal air movement Cardiovascular: Normal pulses, Regular rate/rhythm, Normal S1 S2, Edema Gastrointestinal: Normal bowel sounds, Soft and benign, Non-distended, No rebound, No guarding, Tenderness (at incision site) Musculoskeletal: No tenderness Integumentary: No rashes, No erythema Neurological: Normal speech, Normal strength at 5/5 x4 extr, Normal tone, Normal affect - Studies Laboratory Tests 10/18/19 10/18/19 16:05 16:05 WBC 11.9 H RBC 4.90 Hgb 15.3 Hct 46.7 MCV 95.4 MCH 31.3 MCHC 32.8 RDW 13.4 Plt Count 160 MPV 9.4 Neutrophils % 90.0 H Lymphocytes % 5.5 L Monocytes % 4.0 Eosinophils % 0.1 Basophils % 0.4 Absolute Neutrophils 10.7 H Absolute Lymphocytes 0.7 Absolute Monocytes 0.5 Absolute Eosinophils 0.0 Absolute Basophils 0.0 Morphology Comment Not seen Sodium 134 L Potassium 3.8 Chloride 102 Carbon Dioxide 24 BUN 15 Creatinine 0.82 Estimated GFR > 90 Glucose 145 H Calcium 9.0 Total Bilirubin 0.5 Direct Bilirubin 0.2 AST 34 ALT 37 Alkaline Phosphatase 84 Rapid Troponin I < 0.02 NT-Pro-B Natriuret Pep 140 H Serum Total Protein 8.6 H Albumin 4.1 Globulin 4.5 H Albumin/Globulin Ratio 0.9 L Lipase 69 L Medications List Reviewed: Yes Assessment And Plan - Plan Assessment and plan 1. Acute intractable generalized abdominal pain. Likely due to cholelithiasis and biliary colic and enteritis as seen on CT scan. The HIDA scan report states nonvisualized gallbladder. Likely related to his significant liver cirrhosis Continue Zosyn. Patient taken for cholecystectomy today. Doing significantly better post surgery. Will start on clear liquids and advance as tolerated 2. Chest pain. Likely atypical. ACS has been ruled out 3. Hyperglycemia without diagnosis of diabetes. hemoglobin A1c is 5. Blood glucose levels have been under good control. Sliding scale insulin and Accu- Cheks 4. Alcoholic liver cirrhosis. Counseled CT scan shows cirrhosis 5. Alcohol dependence. Continue multi vitamins. Monitor for signs of withdrawal. Continue with Ativan p.r.n.. Monitor using CIWA protocol 6. Nicotine dependence with cigarette smoking continuous. Counseled 7. Obesity BMI 32 counseled DVT prophylaxis with SCDs. No plans for surgical intervention. Advance diet as tolerated Likely Dc in the next 24 hr if continues to improve
[2019-10-21] MEDS: NA CHLORIDE 0.9% 1,000 ML IV SCH (15:18)
--- NOTE | 2019-10-21 21:49 | OP ---
Date of Procedure: 10/21/2019 Surgeon: Tien Felix MD, Postoperative Diagnosis: Acute calculous cholecystitis. Postoperative Diagnosis: Acute calculous cholecystitis. Procedure Performed: Laparoscopic cholecystectomy. Anesthesia: General endotracheal plus local, 0.5% Marcaine with epinephrine. Estimated Blood Loss: Less than 10 mL. Specimen: Gallbladder. Findings: 1.Inflamed gallbladder. 2.Cirrhosis. Complications: None. Implants: Alicia 3 g coagulation powder. Disposition: Transferred recovery room in good condition. Procedure In Detail: After informed was obtained, patient was brought to the operating room, prepped and draped in usual sterile fashion. After adequate anesthesia achieved, a supraumbilical area was anesthetized with 0.5% Marcaine and sharply incised. A 5 mm trocar was introduced in the abdomen wit hout evidence of complication. Insufflation was obtained to 15 mmHg at this time. There was no inju ry to vital structures upon entry into the abdomen. Additional trocar site was chosen in the epigast rium. This was similarly anesthetized, sharply incised. A 5 mm trocar was introduced in the abdomen without evidence of complication. The umbilical trocar was then up-sized to a 12 mm under direct vi sualization without evidence of complication. Additional trocar site chosen in the right upper quadr ant. This was similarly anesthetized and sharply incised. A 5 mm trocar was introduced in the abdom en without evidence of complication. Patient was positioned head up, right-side up position. The om entum was draped over the anterior surface of the gallbladder completely encasing it. I bluntly diss ected this off the anterior surface of the gallbladder. The gallbladder found to be distended. A de compression needle was brought into the field and the gallbladder was decompressed at the fundus of t he gallbladder with good return of hydropic appearing gallbladder. After this was completely decompr essed, I grasped the gallbladder and placed toward the patient's right shoulder, dissected down to di ssect both the cystic duct and cystic artery, using both blunt and sharp dissection as well as electr ocautery. After this was the 2 structures were visualized, the critical view of safety was obtained both the anterior and lateral directions. After this was ensured at this point, I used a titanium cl ip conference services director to doubly ligate the cystic duct and placed a single clip on the proximal side of the cyst ic artery and I placed single clips on both the distal side of the cystic duct and cystic artery. I then ligated the 2 above structures. The cystic duct was ligated with the Endo Katie and the cystic artery was ligated with the LigaSure device. The hemostasis was achieved at this point, there was g eneral oozing from all cut surfaces; however, electrocautery was used to control the bleeding here. However, there continued to be slight oozing from all cut surfaces. The gallbladder was then removed the hepatic fossa with minimal blood loss at this point. The gallbladder was then placed in EndoCat ch bag removed the umbilical trocar. Reinsufflation was obtained at this time. The area was copious ly irrigated multiple times and all clot was suctioned out until completely clear. The hepatic fossa was found to be good without any evidence of active bleeding. Given the patient's history of cirrho sis, I brought 3 g of Alicia coagulation matrix powder on and sprayed in the hepatic fossa and no add itional hemostatic maneuver was required. The patient was positioned in neutral position, the umbili lidia trocar was removed. The umbilical trocar site was closed using a Uvaldo-Ashleigh suture passer a nd 0 Vicryl in interrupted fashion. Good approximation tissues. The abdomen was then completely sumi ufflated under direct visualization without evidence of complication and all trocars were removed. A ll skin incisions copiously irrigated and closed with a 4-0 Monocryl in a running fashion. Dermabond placed over top. The patient tolerated the procedure well without evidence of complication, transferred to PACU in good condition. All counts w ere correct at the end of the case. SARAN/JOHN Voice ID: [id number] Report ID: [id number]
[2019-10-22] MEDS: MORPHINE 2 MG/ML SYR IV PRN ×3 (00:06→09:00)
[2019-10-22] MEDS: PIPER/TAZO/NS 3.375gm 3.375 GM/100 ML BAG IVPB SCH ×2 (00:07→06:13)
[2019-10-22 03:23] LABS: Absolute Lymphocytes (CBC) 0.9 K/uL (0.7-4.9); Basophils % 0.5 % (0-1.3); Hematocrit 39.9 % (39.6-49.0); Lymphocytes % 10.5 % (15.3-44.8); MPV 9.4 fL (7.6-11.3); RBC Red Blood Cell Count 4.18 M/uL (4.33-5.43)
[2019-10-22 03:35] LABS: ALT/SGPT 64 U/L (12-78); AST/SGOT 51 U/L (15-37); Albumin 2.8 g/dL (3.4-5.0); Alkaline Phosphatase 107 U/L (45-117); BUN Blood Urea Nitrogen 4 mg/dL (7-18); Bicarbonate 28 mmol/L (21-32); Bilirubin Total 1.4 mg/dL (0.2-1.0); Glucose Level 113 mg/dL (74-106); Potassium 3.9 mmol/L (3.5-5.1); Protein, Total 6.8 g/dL (6.4-8.2); Sodium Level 135 mmol/L (136-145)
[2019-10-22] MEDS: ACETAMINOPHEN 650MG/RECT SUPP RECT PRN (05:05)
[2019-10-22] MEDS: NA CHLORIDE 0.9% 1,000 ML IV SCH (06:12)
[2019-10-22] MEDS: FOLIC ACID 1 MG TABLET PO SCH (08:53)
[2019-10-22] MEDS: THIAMINE HCL 100 MG TABLET PO SCH (08:54)
[2019-10-22] MEDS ORDERED: POTASSIUM CL SA 10 MEQ TAB PO ONE (09:00)
[2019-10-22 10:39] VITALS: O2SAT 95
--- NOTE | 2019-10-22 11:20 | PN ---
Date of Progress Note: 10/22/2019 Please note I am covering for Dr. Felix. Patient had a cholecystectomy yesterday laparoscopically. Today, he is tolerating diet. He is ambula ting. He does have a little bit of pain but it is being controlled on oral and parenteral pain manage ment. His vitals are stable. His temperature is 99.4. His white count is 8.6. His H and H are sta ble. Platelets are 123. Chemistry reviewed. Abdomen is soft, nondistended, nontender. There is mi nimal bruising around the incision at the umbilicus. Assessment: Status post laparoscopic cholecystectomy. Recommendations: From a surgical standpoint, patient is doing well enough to be discharged. Once hi s pain is controlled on oral pain medication, encourage ambulation, incentive spirometry. Plan of ca re discussed with Dr. Grimes. HONG/JOHN Voice ID: [id number] Report ID: [id number]
[2019-10-22 12:09] VITALS: BP 119/71; TEMP 98.9
--- NOTE | 2019-10-22 21:41 | DS ---
Date of Discharge: 10/22/2019 Consultants: Dr. Felix with General Surgery. Procedures: On 10/21/2019, laparoscopic cholecystectomy. Admitting Diagnoses: 1.Acute intractable generalized abdominal pain due to cholelithiasis, possibly acute cholecystitis. 2.Enteritis, acute. 3.Chest pain. 4.Hyperglycemia without diagnosis of diabetes. 5.Alcoholic liver cirrhosis. 6.Alcohol dependence. 7.Nicotine dependence with cigarette smoking, continuous. 8.Obesity, BMI 32. Discharge Diagnoses: 1.Acute intractable abdominal pain, generalized, resolved, secondary to acute cholelithiasis, biliar y colic. 2.Acute enteritis, improving. 3.Atypical chest pain, acute coronary syndrome ruled out. 4.Hyperglycemia. Hemoglobin A1c 5%. 5.Alcoholic liver cirrhosis. Patient will need GI followup as outpatient. 6.Alcohol dependence. Counseled. 7.Nicotine dependence, cigarette smoking. Counseled. 8.Obesity, BMI 32. Hospital Course: Patient is a 49-year-old male with past medical history of heavy drinking and smoki ng. Last drink 4 days ago, comes in with abdominal pain. Patient has liver cirrhosis, had been home less for a while as well according to the sister. Patient's CT scan showed cirrhosis and cholelithia sis, possibly enteritis. Abdominal ultrasound did not show any biliary dilatation. Patient did have minimally elevated white blood cell count, which improved. Patient's liver enzymes were mildly elev ated as well, likely due to his liver cirrhosis. Patient was seen by Dr. Felix with General Surger y. He was started on IV antibiotics for the enteritis and possible acute cholecystitis. Gallbladder was not visualized on HIDA scan. Due to patient's deterioration in condition, he was taken for acut e cholecystectomy, which was done laparoscopically. Patient did well postoperatively. His pain impr candy significantly. He was able to tolerate his diet. He was counseled regarding his alcohol use, s moking, and dietary restrictions including 1500 mL fluid restriction, sodium restriction 2 g as well as avoiding fatty fried foods. He will also need to supplement with fat-soluble vitamins including D , E, A and K. Patient voiced understanding. He does not plan to go back to drinking, has not had a drink for the past week or so since being in the hospital. Patient understands that he has liver cir rhosis and he needs to establish care with GI to follow up with his liver cirrhosis. This is seconda ry to chronic alcoholism. He may require transplant in the future if his condition does not improve. He voiced understanding. Patient was then discharged home in a stable condition. Medications: As per medication reconciliation list. Followup: Follow up with primary care physician in 2-3 days. Follow up with surgeon, Dr. Felix in 7-10 days for wound check. Establish care with GI in 2-4 weeks. Return to ER for worsening conditi on. Diet: [place] diet, low-sodium, fluid-restricted diet. Activity: No lifting more than 10 pounds. Physical Examination: General: Awake, alert, oriented, obese male. CV: S1-S2. Respiratory: Moving air well bilaterally. Abdomen: Soft. Minimal tenderness around the incision site. Bowel sounds positive. No rebound or guarding. Extremities: No clubbing, cyanosis. Patient has pedal edema. Neurologic: Nonfocal. Total time spent discharging patient was 36 minutes. /JOHN Voice ID: [id number] Report ID: [id number]
== END 2019-10-22 12:01 | disposition home or self-care (01) | DRG 418 ==
LOC: ER 15:24 → ERHOLD 17:48 → 4TH 19:49
PROVIDERS: ADMIT Family Medicine; ATTEND Family Medicine
PROC: 0FT44ZZ Resection of Gallbladder, Percutaneous Endoscopic Approach (ICD-10-PCS; principal; 2019-10-21 08:45)
DX: K80.00 Calculus of gallbladder with acute cholecystitis without obstruction (principal); F10.239 Alcohol dependence with withdrawal, unspecified; K70.30 Alcoholic cirrhosis of liver without ascites; F10.20 Alcohol dependence, uncomplicated; K52.9 Noninfective gastroenteritis and colitis, unspecified; R07.89 Other chest pain; R73.9 Hyperglycemia, unspecified; E66.9 Obesity, unspecified; Z68.32 Body mass index [BMI] 32.0-32.9, adult
CPT/HCPCS: 36415; 71045; 74177; 76705; 78226; 80048; 80053; 80076; 82947; 83036; 83690; 83735; 83880; 84484; 85018; 85025; 86850; 86900; 86901; 88304; 93005; 94760; 96365; 96366; 96375; 99285; A9537; J1170; J2175; J2250; J2270; J2405; J2543; J2704; J2710; J3010; J7030; J7799; Q9967

== ENCOUNTER 2020-07-09 16:48 | Inpatient (IN) | payer SELFPAY ==
--- OUTSIDE RECORDS SUMMARY | 2020-07-09 16:53 | XMS REPORT | Continuity of Care Document ---
:1970 Author Organization [facility] t Address [address] [place] [address] Care Team Providers Name Role Phone Helen Bowens Attending Clinician Problems This patient has no known problems. Allergies, Adverse Reactions, Alerts This patient has no known allergies or adverse reactions. Medications This patient has no known medications. Procedures This patient has no known procedures. Encounters Start End Encounter Admission Attending Care Care Encounter Source Date/Time Date/Time Type Type Clinicians Facility Department ID 2019-10-28 2019-10-28 Emergency [facility] [id number] 09:26:07 20:01:00 Helen Brown [id number] [place] [id number] [place] [id number] Results This patient has no known results.
[2020-07-09] MEDS ORDERED: PANTOPRAZOLE 40 MG INJ ONE (17:41)
[2020-07-09] MEDS ORDERED: ONDANSETRON 4 MG/2 ML VIAL ONE ×2 (17:41→18:33)
[2020-07-09] MEDS ORDERED: MORPHINE 4 MG/ML SYR ONE ×2 (17:41→18:33)
[2020-07-09 17:51] LABS: Absolute Lymphocytes (CBC) 1.1 K/uL (0.7-4.9); Basophils % 0.9 % (0-1.3); Hematocrit 43.7 % (39.6-49.0); Lymphocytes % 9.3 % (15.3-44.8); MPV 9.7 fL (7.6-11.3); RBC Red Blood Cell Count 4.58 M/uL (4.33-5.43)
[2020-07-09 18:04] LABS: ALT/SGPT 32 U/L (12-78); AST/SGOT 32 U/L (15-37); Alkaline Phosphatase 93 U/L (45-117); BUN Blood Urea Nitrogen 12 mg/dL (7-18); Bicarbonate 26 mmol/L (21-32); Bilirubin Direct 0.2 mg/dL (0-0.2); Bilirubin Total 0.7 mg/dL (0.2-1.0); Glucose Level 113 mg/dL (74-106); Lipase 60 U/L (73-393); Potassium 4.2 mmol/L (3.5-5.1); Protein, Total 8.3 g/dL (6.4-8.2); Sodium Level 137 mmol/L (136-145)
[2020-07-09] MEDS ORDERED: NA CHLORIDE 0.9% 1,000 ML ONE (18:33)
--- NOTE | 2020-07-09 18:53 | RAD REPORT ---
EXAM DESCRIPTION: CT - Abdomen Pelvis W Contrast - 07/09/2020 6:38 pm CLINICAL HISTORY: ABD PAIN COMPARISON: Abdomen Pelvis W Contrast dated 10/18/2019 TECHNIQUE: Biphasic, helical CT imaging of the abdomen and pelvis was performed following 100 ml non -ionic IV contrast. No oral contrast administered. All CT scans are performed using dose optimization technique as appropriate and may include automated exposure control or mA/KV adjustment according to patient size. FINDINGS: No suspicious findings in the lung bases. Liver shows a nodular capsule contour similar to prior imaging. No focal liver parenchymal lesion. Le ft lobe is prominent. Spleen and pancreas show no suspicious findings. Gallbladder has been resected since the October comparison study. No biliary tree dilatation. Symmetric renal function is seen with no hydronephrosis or suspicious renal mass. No pyelonephritis o r acute parenchymal process. No bladder abnormalities. No adrenal abnormalities. No dilated bowel loops or bowel wall thickening. No free air, free fluid or inflammatory stranding. No mass or bulky lymphadenopathy. Patient has a 6 centimeter diameter periumbilical hernia. The neck is 3 cm. Hernia contains a loop of distal ileum. No obstructive changes, wall edema or other acute c omponent. No suspicious bony findings. IMPRESSION: No obstruction, free air or surgically emergent finding. Patient has developed a a periumbilical hernia superior and right side of the umbilicus since the Oct ruary study. This is 6 cm in diameter with a 3 centimeter neck. Hernia contains a loop of distal smal l bowel but no wall thickening, edema or obstructive component evident. Correlation is needed with an y localizing pain symptoms. Cirrhotic changes to the liver without focal lesion, ascites or other associated complication.
[2020-07-09] MEDS ORDERED: HYDROMORPHONE HCL 1 MG/ML INJ ONE (19:24)
[2020-07-09 19:30] LABS: Urine Bacteria <20 /HPF (NONE SEEN); Urine RBC <5 /HPF (NONE SEEN)
[2020-07-09 19:31] LABS: Urine Amorphous Sediment 3+ /HPF (NONE SEEN); Urine Culture Reflex Order NOT NEEDED; Urine Mucus 1+ /HPF (NONE SEEN)
[2020-07-09 19:31] LABS: Urine Blood NEGATIVE (NEG); Urine Glucose NEGATIVE (NEG); Urine Protein NEGATIVE (NEG)
[2020-07-09 20:13] LABS: Protime INR 1.08
[2020-07-09] MEDS ORDERED: CEFOXITIN/SWI 1gm 1 GM/10 ML SYR ONE (20:30)
--- NOTE | 2020-07-09 20:50 | EDPHYS ---
Physician Documentation [facility] Name: Blane Marquez Age: 50 yrs Sex: Male : 1970 Arrival Date: 07/09/2020 Time: 16:50 Bed 8 Private MD: ED Physician Prince Heredia HPI: 07/09 17:30 This 50 yrs old Male presents to ER via Wheelchair with complaints of cp Abdominal Pain. 17:30 The patient presents with abdominal pain that is diffuse. Onset: The symptoms/episode cp began/occurred today. Associated signs and symptoms: Pertinent positives: nausea, Pertinent negatives: chest pain, constipation, diarrhea. 17:30 The symptoms radiate to back. cp 17:30 The symptoms are described as constant. Severity of pain: in the emergency department cp the pain is unchanged. Historical: - Allergies: 17:13 No Known Allergies; ca1 - Home Meds: 17:13 None [Active]; ca1 - PMHx: 17:37 Cirrhosis; aa5 - PSHx: 17:13 Cholecystectomy; ca1 - Immunization history:: Adult Immunizations up to date, Flu vaccine is not up to date. - Social history:: Smoking status: Patient reports the use of cigarette tobacco products, smokes one pack cigarettes per day. ROS: 17:40 Abdomen/GI: Positive for abdominal pain, nausea, Negative for diarrhea, constipation, cp anorexia. 17:40 Eyes: Negative for injury, pain, redness, and discharge. cp 17:40 Constitutional: Negative for body aches, fever, poor PO intake. 17:40 Cardiovascular: Negative for chest pain. 17:40 Respiratory: Negative for cough, shortness of breath, wheezing. 17:40 Back: Positive for radiated pain. cp 17:40 : Negative for urinary symptoms. 17:40 Neuro: Negative for dizziness, headache, weakness. cp 17:40 All other systems are negative. Exam: 17:50 Constitutional: The patient appears in no acute distress, alert, awake, cp non-diaphoretic, non-toxic, well developed, well nourished, uncomfortable. 17:50 Head/Face: Normocephalic, atraumatic. cp 17:50 Eyes: Periorbital structures: appear normal, Conjunctiva: normal, no exudate, no cp injection, Sclera: no appreciated abnormality, Lids and lashes: appear normal, bilaterally. 17:50 ENT: External ear(s): are unremarkable, Nose: is normal, Mouth: Lips: moist, Oral mucosa: moist, Posterior pharynx: is normal, airway is patent, no erythema, no exudate. 17:50 Chest/axilla: Inspection: normal, Palpation: is normal, no crepitus, no tenderness. 17:50 Cardiovascular: Rate: normal, Rhythm: regular. 17:50 Respiratory: the patient does not display signs of respiratory distress, Respirations: normal, no use of accessory muscles, no retractions, labored breathing, is not present, Breath sounds: are clear throughout, no decreased breath sounds, no stridor, no wheezing. 17:50 Abdomen/GI: Inspection: obese Bowel sounds: active, all quadrants, Palpation: soft, in all quadrants, severe abdominal tenderness, in all quadrants, rebound tenderness, is not appreciated, voluntary guarding, is not appreciated. 17:50 Back: pain, is absent, ROM is normal. 17:50 Skin: no rash present. 17:50 Neuro: Orientation: to person, place \T\ time. Mentation: is normal. Vital Signs: 17:11 BP 144 / 104; Pulse 91; Resp 16 S; Temp 98.1(TE); Pulse Ox 97% on R/A; Weight 113.4 kg ca1 (R); Height 5 ft. 5 in. (165.10 cm) (R); Pain 10/10; 18:30 BP 143 / 96; Pulse 88; Resp 16; Pulse Ox 95% ; bp 19:15 BP 131 / 78; Pulse 80; Resp 18; Pulse Ox 97% ; ea 20:30 BP 135 / 75; Pulse 87; Resp 18; Pulse Ox 98% on R/A; ea 20:51 BP 102 / 70; Pulse 85; Resp 18; Pulse Ox 95% on R/A; mg2 17:11 Body Mass Index 41.60 (113.40 kg, 165.10 cm) ca1 MDM: 17:20 Patient medically screened. cp 19:30 Data reviewed: vital signs, nurses notes, lab test result(s), radiologic studies, CT cp scan. 19:30 Response to treatment: the patient's symptoms have mildly improved after treatment, cp pain improved. Attempt to reduce umbilical hernia unsuccessful, will consult general surgery. 19:50 Physician consultation: Tonny Sheikh MD was contacted at 19:45, regarding consult, cp patient's condition, requests consult be made with DR Felix concerning patient's condition due to DR Garcia performing cholecystectomy approximately 9 months ago. 19:52 Physician consultation: Tien Felix MD was called at 19:50, was contacted at 19:50, cp regarding patient's condition, says he will not see patient. Patient had cholecystectomy performed by DR Garcia approximately 9 months ago and did not pay for surgery. Requests that on-call surgeon be called to evaluate patient. 19:54 Physician consultation: Tonny Sheikh MD was called at 19:52, was contacted at 19:52, cp regarding patient's condition, refusal of DR Garcia to evaluate patient. Requests admittance to hospitalist services, keep npo and start Mefoxin. Will evaluate patient in morning. 07/09 17:24 Order name: Basic Metabolic Panel cp 07/09 17:24 Order name: CBC with Diff; Complete Time: 18:04 cp 07/09 17:24 Order name: Hepatic Function; Complete Time: 18:04 cp 07/09 17:24 Order name: Lipase; Complete Time: 18:05 cp 07/09 17:24 Order name: Urine Microscopic Only; Complete Time: 19:35 cp 07/09 17:24 Order name: Basic Metabolic Panel; Complete Time: 18:05 EDMS 07/09 18:08 Order name: CT Abd/Pelvis - IV Contrast Only; Complete Time: 19:04 cp 07/09 19:04 Order name: Urine Dipstick--Ancillary (enter results); Complete Time: 19:35 tt3 07/09 19:35 Order name: PT-INR; Complete Time: 20:30 cp 07/09 19:35 Order name: Ptt, Activated; Complete Time: 20:30 cp 07/09 17:24 Order name: IV Saline Lock; Complete Time: 17:32 cp 07/09 17:24 Order name: Labs collected and sent; Complete Time: 17:32 cp 07/09 17:24 Order name: Urine Dipstick-Ancillary (obtain specimen); Complete Time: 19:15 cp 07/09 19:56 Order name: NPO; Complete Time: 20:06 cp Administered Medications: 17:32 Drug: Zofran (Ondansetron) 4 mg Route: IVP; Site: right antecubital; aa5 19:01 Follow up: Response: Nausea is decreased bp 17:32 Drug: morphine 4 mg Route: IVP; Site: right antecubital; aa5 19:01 Follow up: Response: Pain is decreased bp 17:32 Drug: ProTONIX 40 mg Route: IVP; Site: right antecubital; aa5 19:01 Follow up: Response: No adverse reaction bp 18:20 Drug: NS 0.9% 1000 ml Route: IV; Rate: 1 bolus; Site: right antecubital; bp 18:20 Drug: Zofran (Ondansetron) 4 mg Route: IVP; Site: right antecubital; bp 19:02 Follow up: Response: Nausea is decreased bp 18:20 Drug: morphine 4 mg Route: IVP; Site: right antecubital; bp 19:02 Follow up: Response: Pain is decreased bp 19:14 Drug: Dilaudid 1 mg {Note: RASS 1.} Route: IVP; Site: right antecubital; ea 20:06 Follow up: Response: No adverse reaction mg2 20:17 Follow up: Response: No adverse reaction; Pain is decreased; RASS: Alert and Calm (0) ea 19:14 CANCELLED (Duplicate Order): Dilaudid 1 mg IVP once; RASS on ADMIN: Combtv4, Very ea Agttd3, Agttd2, Rstlss1, AlertClm0, Drwsy-1, Lt Sdtn-2, Mod Sdtn-3, Dp Sdtn-4, UnArsble-5 20:19 Drug: Mefoxin 1 grams Route: IVPB; Infused Over: 30 mins; Site: right antecubital; mg2 21:21 Follow up: Response: No adverse reaction; IV Status: Completed infusion mg2 20:51 Drug: Dilaudid 0.5 mg Route: IVP; Site: right antecubital; mg2 21:21 Follow up: Response: No adverse reaction mg2 Disposition: 07/10 06:49 Co-signature as Attending Physician, Prince Heredia MD I agree with the assessment and kdr plan of care. Disposition: 07/09/20 20:50 Hospitalization ordered by Prince Yunior for Observation. Preliminary diagnosis are Umbilical hernia without obstruction or gangrene, Other abdominal pain - intractable. - Bed requested for Telemetry/MedSurg (observation). - Status is Observation. mg2 - Condition is Stable. - Problem is new. - Symptoms have improved. Signatures: Dispatcher [employer] EDPrince Hoang MD MD [facility] Elizabeth Rios RN RN aa5 Yamileth Birch, RN RN tl1 Doc Mueller, PA PA cp [place] Shirley RN RN ea Brian Duckworth RN RN bp Jeff Alexander RN RN mg2 AcobZabrina RN RN ca1 Corrections: (The following items were deleted from the chart) 07/09 17:37 17:13 PMHx: None; ca1 aa5 19:14 19:09 Dilaudid 1 mg IVP once; RASS on ADMIN: Combtv4, Very Agttd3, Agttd2, Rstlss1, ea AlertClm0, Drwsy-1, Lt Sdtn-2, Mod Sdtn-3, Dp Sdtn-4, UnArsble-5 ordered. cp 21:12 20:50 Hospitalization Ordered by Prince Yunior REYES for Observation. Preliminary tl1 diagnosis is Umbilical hernia without obstruction or gangrene; Other abdominal pain - intractable. Bed requested for Telemetry/MedSurg (observation). Status is Observation. Condition is Stable. Problem is new. Symptoms have improved. cp 21:31 21:12 07/09/2020 20:50 Hospitalization Ordered by Prince Yunior REYES for Observation. mg2 Preliminary diagnosis is Umbilical hernia without obstruction or gangrene; Other abdominal pain - intractable. Bed requested for Telemetry/MedSurg (observation). Status is Observation. Condition is Stable. Problem is new. Symptoms have improved. tl1
--- NOTE | 2020-07-09 20:50 | ER ---
Nurse's Notes [facility] Name: Blane Marquez Age: 50 yrs Sex: Male : 1970 Arrival Date: 07/09/2020 Time: 16:50 Bed 8 Private MD: Diagnosis: Umbilical hernia without obstruction or gangrene;Other abdominal pain-intractable Presentation: 07/09 17:11 Chief complaint: Patient states: Upper abdominal pain since noon today. Reports nausea. ca1 Coronavirus screen: Client denies travel out of the [place] in the last 14 days. nausea, Client presents with at least one sign or symptom that may indicate coronavirus-19. Standard/surgical mask placed on the client. Provider contacted for isolation considerations. Ebola Screen: Patient negative for fever greater than or equal to 101.5 degrees Fahrenheit, and additional compatible Ebola Virus Disease symptoms Patient denies exposure to infectious person. Patient denies travel to an Ebola-affected area in the 21 days before illness onset. No symptoms or risks identified at this time. Initial Sepsis Screen: Does the patient meet any 2 criteria? No. Patient's initial sepsis screen is negative. Does the patient have a suspected source of infection? No. Patient's initial sepsis screen is negative. Risk Assessment: Do you want to hurt yourself or someone else? Patient reports no desire to harm self or others. Onset of symptoms was July 09, 2020 at 12:00. 17:11 Method Of Arrival: Wheelchair ca1 17:11 Acuity: MICHA 2 ca1 Triage Assessment: 17:15 General: Appears distressed, uncomfortable, Behavior is cooperative, appropriate for bp age, anxious. Pain: Complains of pain in abdomen. EENT: No deficits noted. Neuro: No deficits noted. Cardiovascular: No deficits noted. Respiratory: No deficits noted. GI: Abdomen is non-distended, obese, Reports upper abdominal pain. : No signs and/or symptoms were reported regarding the genitourinary system. Derm: No deficits noted. Musculoskeletal: No deficits noted. Historical: - Allergies: 17:13 No Known Allergies; ca1 - Home Meds: 17:13 None [Active]; ca1 - PMHx: 17:37 Cirrhosis; aa5 - PSHx: 17:13 Cholecystectomy; ca1 - Immunization history:: Adult Immunizations up to date, Flu vaccine is not up to date. - Social history:: Smoking status: Patient reports the use of cigarette tobacco products, smokes one pack cigarettes per day. Screenin:15 Abuse screen: Denies threats or abuse. Denies injuries from another. Nutritional bp screening: No deficits noted. Tuberculosis screening: No symptoms or risk factors identified. Fall Risk None identified. Assessment: 17:15 General: SEE TRIAGE NOTE. bp 18:30 Reassessment: PT RETURNED FROM CT. ASKING FOR MORE PAIN MEDICINE, MD NOTIFIED. bp 19:15 General: Appears uncomfortable, Behavior is appropriate for age. Pain: Complains of ea pain in umbilical area. Neuro: Level of Consciousness is awake, alert, obeys commands, Oriented to person, place, time, situation. Cardiovascular: Patient's skin is warm and dry. Respiratory: Airway is patent Respiratory effort is even, unlabored, Respiratory pattern is regular, symmetrical. GI: Abdomen is distended. Derm: Skin is pink, warm \T\ dry. 20:17 Reassessment: Patient and/or family updated on plan of care and expected duration. Pain ea level reassessed. Patient is alert, oriented x 3, equal unlabored respirations, skin warm/dry/pink. 20:51 Reassessment: patient is in pain. provider informed and ordered pain medicine. mg2 21:31 Reassessment: Patient and/or family updated on plan of care and expected duration. Pain ea level reassessed. Patient is alert, oriented x 3, equal unlabored respirations, skin warm/dry/pink. Vital Signs: 17:11 BP 144 / 104; Pulse 91; Resp 16 S; Temp 98.1(TE); Pulse Ox 97% on R/A; Weight 113.4 kg ca1 (R); Height 5 ft. 5 in. (165.10 cm) (R); Pain 10/10; 18:30 BP 143 / 96; Pulse 88; Resp 16; Pulse Ox 95% ; bp 19:15 BP 131 / 78; Pulse 80; Resp 18; Pulse Ox 97% ; ea 20:30 BP 135 / 75; Pulse 87; Resp 18; Pulse Ox 98% on R/A; ea 20:51 BP 102 / 70; Pulse 85; Resp 18; Pulse Ox 95% on R/A; mg2 17:11 Body Mass Index 41.60 (113.40 kg, 165.10 cm) ca1 ED Course: 16:50 Patient arrived in ED. ag5 17:12 Triage completed. ca1 17:13 Arm band placed on right wrist. ca1 17:14 Doc Mueller PA is PHCP. cp 17:14 Prince Heredia MD is Attending Physician. cp 17:15 Patient has correct armband on for positive identification. Bed in low position. Call bp light in reach. Side rails up X2. Adult w/ patient. 17:21 Brian Duckworth, JUAN is Primary Nurse. bp 17:30 Initial lab(s) drawn, by me, sent to lab. Inserted saline lock: 20 gauge in right aa5 antecubital area, using aseptic technique. Blood collected. 18:39 CT Abd/Pelvis - IV Contrast Only In Process Unspecified. EDMS 20:49 Prince Mojica MD is Hospitalizing Provider. cp 20:52 No provider procedures requiring assistance completed. mg2 21:31 Patient admitted, IV remains in place. mg2 Administered Medications: 17:32 Drug: Zofran (Ondansetron) 4 mg Route: IVP; Site: right antecubital; aa5 19:01 Follow up: Response: Nausea is decreased bp 17:32 Drug: morphine 4 mg Route: IVP; Site: right antecubital; aa5 19:01 Follow up: Response: Pain is decreased bp 17:32 Drug: ProTONIX 40 mg Route: IVP; Site: right antecubital; aa5 19:01 Follow up: Response: No adverse reaction bp 18:20 Drug: NS 0.9% 1000 ml Route: IV; Rate: 1 bolus; Site: right antecubital; bp 18:20 Drug: Zofran (Ondansetron) 4 mg Route: IVP; Site: right antecubital; bp 19:02 Follow up: Response: Nausea is decreased bp 18:20 Drug: morphine 4 mg Route: IVP; Site: right antecubital; bp 19:02 Follow up: Response: Pain is decreased bp 19:14 Drug: Dilaudid 1 mg {Note: RASS 1.} Route: IVP; Site: right antecubital; ea 20:06 Follow up: Response: No adverse reaction mg2 20:17 Follow up: Response: No adverse reaction; Pain is decreased; RASS: Alert and Calm (0) ea 19:14 CANCELLED (Duplicate Order): Dilaudid 1 mg IVP once; RASS on ADMIN: Combtv4, Very ea Agttd3, Agttd2, Rstlss1, AlertClm0, Drwsy-1, Lt Sdtn-2, Mod Sdtn-3, Dp Sdtn-4, UnArsble-5 20:19 Drug: Mefoxin 1 grams Route: IVPB; Infused Over: 30 mins; Site: right antecubital; mg2 21:21 Follow up: Response: No adverse reaction; IV Status: Completed infusion mg2 20:51 Drug: Dilaudid 0.5 mg Route: IVP; Site: right antecubital; mg2 21:21 Follow up: Response: No adverse reaction mg2 Outcome: 20:50 Decision to Hospitalize by Provider. cp 21:16 Instructed on the need for admit, Demonstrated understanding of instructions. ea 21:31 Admitted to Med/surg accompanied by nurse, via wheelchair, room 221, with chart, Report mg2 called to JUAN Neal 21:31 Condition: stable 21:31 Patient left the ED. mg2 Signatures: Dispatcher [employer] EDMS Elizabeth Rios, RN RN aa5 Doc Mueller PA PA cp Antunez, Elena, RN RN ea Peltier, Brian, RN RN bp Gardose, Michele, RN RN [facility] [place] Zabrina Singleton RN RN ca1 Ary Robert ag5 Corrections: (The following items were deleted from the chart) 17:13 17:11 Chief complaint: Patient states: Upper abdominal pain since noon today. Reports ca1 nausea. ca1 17:13 17:11 Acuity: MICHA 3 ca1 ca1 17:37 17:13 PMHx: None; ca1 aa5 19:25 17:18 Elizabeth Rios, RN is Primary Nurse. aaBilly aaBilly 19:25 17:21 Primary Nurse role handed off by Elizabeth Rios RN aa5
[2020-07-09] MEDS ORDERED: HYDROMORPHONE HCL 0.5 MG/0.5 ML INJ ONE (21:01)
--- NOTE | 2020-07-09 21:07 | P.HP ---
Certification for Inpatient Patient admitted to: Observation With expected LOS: <2 Midnights Practitioner: I am a practitioner with admitting privileges, knowledge of patient current condition, hospital course, and medical plan of care. 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 The present to the ER complaining of a 4 week history of diffuse abdominal pain that been intermittent in nature over this period. Patient is reporting a periumbilical pain that radiates in a band-like pattern that radiates laterally to both flanks. Associated symptoms include subjective fever, chills and nonbloody emesis. Patient state that he had a cholecystectomy [address] Sanchez. He arrived in the ER hemodynamically stable. A CT abdomen and pelvis showed evidence of right-sided mitul umbilical hernia. It is 6 cm in diameter and has a 3-cm neck. The hernia contains a portion of the small bowel without signs of incarcerated. During our encounter in the ER, patient was still vomiting. Dr. Mi requested patient be admitted to Medicine due to findings of cirrhosis as this was reported on the CT scan above. Patient had has a history of excessive alcohol consumption but none recently. He drinks occasionally now but without dependence or abuse. Patient denies any history of hematemesis, or encephalopathy. No ascites found on CT. Allergies No Known Allergies Allergy (Unverified 10/18/19 20:24) Home Medications: NK [No Home Meds] 07/09/20 - Past Medical/Surgical History Diabetic: No -: Surgery on the foot after a brown recluse spider bite - Family History Mother -: Heart disease, Hypertension, Other (see notes) Notes: sleep apnea. kidney stones Father -: Diabetes Notes: sleep apnea - Social History Alcohol use: Yes Caffeine use: Yes Physical Examination - Physical Exam General: Cooperative, Severe distress, Obese HEENT: Atraumatic, Normocephalic, EOMI Neck: Supple Respiratory: Clear to auscultation bilaterally, Normal air movement Cardiovascular: No edema, Normal pulses, Regular rate/rhythm, Normal S1 S2 Gastrointestinal: Soft and benign, Other (ventral hernia), Tenderness, Masses Musculoskeletal: No clubbing, No swelling, No contractures, No erythema, No tenderness, No warmth Integumentary: No rashes, No breakdown, No significant lesion, No tenderness/swelling, No erythema, No warmth, No cyanosis Neurological: Normal speech, Sensation intact, Normal affect - Studies Laboratory Data (last 24 hrs) 07/09/20 19:48: PT 12.7 H, INR 1.08, APTT 27.1 07/09/20 17:30: WBC 11.8 H, Hgb 14.5, Hct 43.7, Plt Count 181 07/09/20 17:30: Sodium 137, Potassium 4.2, BUN 12, Creatinine 0.85, Glucose 113 H, Total Bilirubin 0.7, AST 32, ALT 32, Alkaline Phosphatase 93, Lipase 60 L Assessment and Plan - Problems (Diagnosis) (1) Periumbilical hernia Current Visit: Yes Status: Acute (2) Cirrhosis Current Visit: Yes Status: Acute (3) Morbid obesity Current Visit: Yes Status: Acute - Advance Directives Does patient have a Living Will: No Does patient have a Durable POA for Healthcare: No Physician Review Additional Text: Assessment 50 year old male with a PSH of cholecystectomy presents with severe periumbilical pain. Found to have periumbilical hernia on CT ABD/PELVIS. Surgery agreed to operate on the patient tomorrow but they have requested he be admitted under Medicine for history of cirrhosis. Patient has compensated liver function and physical exam. Periumbilical hernia Cirrhosis Morbid obesity Plan: Admit under observation Start multimodal pain regimen and IV fluid infusion Anti-emetics and PPI also on board Hold DVT prophylaxis preoperatively NPO past midnight Patient's cirrhosis is compensated and does not require additional work up He is also a low risk for alcohol withdrawal syndrome Proceed with surgery without delay Anticipating discharge tomorrow after surgery
[2020-07-09 21:54] VITALS: BMI 41.5
[2020-07-09] MEDS ORDERED: ONDANSETRON 4 MG/2 ML VIAL IV PRN (22:01)
[2020-07-09] MEDS ORDERED: Ringers Lactate 1,000 ML IV ONE (22:21)
[2020-07-09] MEDS: Ringers Lactate 1,000 ML IV SCH (22:25)
[2020-07-09] MEDS: PANTOPRAZOLE 40 MG INJ IVP SCH (22:33)
[2020-07-09] MEDS: KETOROLAC 30 MG/ML INJ IV SCH (22:34)
[2020-07-10] MEDS: HYDROMORPHONE HCL 1 MG/ML INJ IV PRN ×4 (00:48→22:00)
[2020-07-10] MEDS ORDERED: CEFOXITIN SODIUM 1 GM/VIAL ONE (02:12)
[2020-07-10] MEDS: SODIUM CHLORIDE 0.9% 10ML INJ IV PRN (02:39)
[2020-07-10] MEDS ORDERED: WATER FOR INJ,STERILE 10 ML IV ONE (03:00)
[2020-07-10] MEDS ORDERED: CEFOXITIN SODIUM 1 GM/VIAL IV ONE (03:00)
[2020-07-10] MEDS: KETOROLAC 30 MG/ML INJ IV SCH ×3 (05:01→18:19)
[2020-07-10] MEDS ORDERED: Ringers Lactate 1,000 ML IV ONE (05:44)
[2020-07-10] MEDS ORDERED: CEFOXITIN SODIUM 1 GM/VIAL IVPB SCH (06:00)
[2020-07-10] MEDS ORDERED: CEFOXITIN/SWI 1gm 1 GM/10 ML SYR ONE (06:03)
[2020-07-10] MEDS ORDERED: ROCURONIUM 50 MG/5 ML VIAL IV ONE (06:13)
[2020-07-10] MEDS ORDERED: propofoL 200 MG/20 ML VIAL IV ONE (06:13)
[2020-07-10] MEDS ORDERED: LIDOCAINE 2% MPF 5 ML VIAL ONE (06:14)
[2020-07-10] MEDS ORDERED: FENTANYL CITR 100 MCG/2 ML ONE (06:28)
[2020-07-10] MEDS ORDERED: dexAMETHasone 4 MG/ML VIAL ONE (06:30)
[2020-07-10] MEDS ORDERED: KETOROLAC 30 MG/ML INJ ONE (06:30)
[2020-07-10] MEDS ORDERED: EPHEDRINE SULF 50 MG/ML VIAL ONE (06:40)
[2020-07-10] MEDS ORDERED: NEOSTIGMINE 1 MG/ML -5 ML ONE (07:03)
[2020-07-10] MEDS ORDERED: GLYCOPYRROLATE 0.2 MG/ML SYR ONE (07:03)
--- NOTE | 2020-07-10 07:07 | P.OP ---
[employer]: Travis RUIZ Preoperative diagnosis: Incarcerated Incisional Hernia Postoperative diagnosis: same Primary procedure: Laparoscopic Repair Incarcerated Incisional Hernia Anesthesia: General Estimated blood loss: min Specimen: Hernia sac Findings: as above Complications: None Transferred to: Recovery Room Condition: Good
[2020-07-10] MEDS: HYDROMORPHONE HCL 1 MG/ML INJ ONE ×4 (07:40→07:55)
[2020-07-10] MEDS: Ringers Lactate 1,000 ML IV SCH ×4 (08:01→22:00)
--- NOTE | 2020-07-10 08:29 | OP ---
Date of Procedure: 07/10/2020 Surgeon: Tonny Sheikh MD Assistant County Engineer: JOSEPH Garber. Preoperative Diagnosis: Incarcerated incisional hernia. Postoperative Diagnosis: Incarcerated incisional hernia. Procedure Performed: Laparoscopic repair of incarcerated incisional hernia. Estimated Blood Loss: Minimal. Specimen: Hernia sac. Finding: As above. Anesthesia: General. Complications: None. The patient tolerated the procedure in stable condition, taken to Recovery in good general condition. Procedure In Detail: Patient was brought to the OR and placed in supine position and general anesthe tucker begun. Patient was prepped draped in usual sterile fashion. Marcaine 0.5% was infiltrated local ly. A 15-blade was used to make a 1 cm left upper quadrant incision. Subcutaneous tissue was divide d. Fascia was identified and divided. #1 Vicryl stay suture was placed. Peritoneal cavity was ente red with sharp and blunt dissection. 12 mm trocar was placed into the peritoneal cavity under direct vision. Pneumoperitoneum was established and two 5 mmm trocars were placed one in the left lower qu adrant and left in the left middle quadrant. Laparoscopy revealed incarcerated small bowel and herni a just above the umbilicus and slightly to the right. The bowel was carefully dissected free from th e hernia sac and reduced. It was healthy. There was mild edema and erythema but there was no necros is and there was good motility. There was some congestion of the mesenteric fat as well but nothing that required resection. Subsequently a 4 cm incision was made over the hernia sac. Subcutaneous ti ssue was divided. Hernia sac was identified after that down to the fascial defect, which was approxi mately 3.5 cm and then #2 nylon running suture was used to close the fascial defect, and then pneumop eritoneum was re-established and Bard oval mesh appropriate size with complete coverage around the he rnia site, was deployed and secured with type material. Complete coverage of the defect w as accomplished and there was no evidence of bleeding or bowel injury appreciated. All trocars were removed under direct vision. Stay sutures were tied to each other and reapproximated the fascial def ect. Subcutaneous wounds were irrigated. Bleeding was controlled with cautery. 3-0 chromic was use d to approximate the subcutaneous tissue and grace used to close skin. Sterile dressing was applie d. The patient was awakened and taken to Recovery in good general condition. HONG/JOHN Voice ID: [id number] Report ID: [id number]
--- NOTE | 2020-07-10 08:44 | PREOPCON ---
Date of Consultation: 07/09/2020 Reason For Consultation: Abdominal pain. History Of Present Illness: The patient is a 50-year-old gentleman comes in with a 1-day history of diffuse abdominal pain associated with occasional nausea and vomiting. Last bowel movement was yeste rday as well as passing gas. No dysuria or hematuria. No sore throat, runny nose, cough, headaches, or dizziness. No chest pain. No fever or chills. The patient did have a gallbladder surgery done [address] Felix, who was notified about this admission through the ER. He refused to job luate the patient. The patient had a hernia secondary to the incision where the port was placed. Review of Systems: Otherwise unremarkable. Past Medical History: Cirrhosis secondary to alcohol abuse. Past Surgical History: Laparoscopic cholecystectomy. Allergies: NONE. Social History: The patient does smoke and still drinks alcohol. Family History: Noncontributory. Physical Examination: Vital Signs: His vitals are stable. He is afebrile. General: He is awake, alert, and oriented x3. Head and Neck: Cranial nerves 2 through 12 are grossly within normal limits. No neck masses. No JV D. No evidence of icterus. Chest: Clear. Heart: S1 and S2. Abdomen: Soft, slightly distended. Tender in the periumbilical region but no tension tenderness. N o peritonitis. Extremities: Adequately perfused. Nontender. Neuro: Nonfocal. Laboratory Data: CT of the abdomen and pelvis reviewed shows a 3 cm periumbilical hernia with a 6 cm hernia sac, this is a small bowel present in it with no wall thickening edema or obstructive compone nt evident. Cirrhotic changes are seen in the liver without focal lesion, ascites or other associate d complications. White count is slightly elevated at 11.8, INR is 1.08. Chemistry reviewed. LFTs a re within normal limits. Assessment: Incarcerated incisional hernia. Plan: Admit n.p.o., IV fluid, IV antibiotic, to the OR for laparoscopic possible open repair of inca rcerated incisional hernia. The patient understands the risks, benefits, and alternatives and agrees to procedure. /MODL Voice ID: [id number] Report ID: [id number]
[2020-07-10] MEDS: PANTOPRAZOLE 40 MG INJ IVP SCH (08:57)
[2020-07-10] MEDS ORDERED: INFLUENZA VACCINE (for 3y+) 0.5 ML DOSE IMVAC ONE (10:00)
[2020-07-10] MEDS: CEFOXITIN/SWI 1gm 1 GM/10 ML SYR IVP SCH ×3 (13:46→23:03)
--- NOTE | 2020-07-10 17:24 | P.PN ---
Subjective Date of Service: 07/10/20 Chief Complaint: Abdominal pain Subjective: No new changes (patient seen shortly after returning to room from OR, pt reports soreness, no nausea/vomiting) Review of Systems 10-point ROS is otherwise unremarkable Physical Examination - Vital Signs Temperature: 98.0 F Blood Pressure: 151/78 Pulse: 84 Respirations: 18 Pulse Ox (%): 93 - Physical Exam General: Alert, Oriented x3, Mild distress (Appears uncomfortable) HEENT: Sclerae nonicteric Respiratory: Clear to auscultation bilaterally Cardiovascular: No edema, Regular rate/rhythm Gastrointestinal: Non-distended, Tenderness (Mild, at incisional site) Neurological: Normal speech, Normal affect - Studies Laboratory Data (last 24 hrs) 07/09/20 19:48: PT 12.7 H, INR 1.08, APTT 27.1 07/09/20 17:30: WBC 11.8 H, Hgb 14.5, Hct 43.7, Plt Count 181 07/09/20 17:30: Sodium 137, Potassium 4.2, BUN 12, Creatinine 0.85, Glucose 113 H, Total Bilirubin 0.7, AST 32, ALT 32, Alkaline Phosphatase 93, Lipase 60 L Microbiology Data (last 24 hrs): 07/09/20 22:19 Nasopharnyx Coronavirus COVID-19 PCR - Final Assessment & Plan Physician Review Additional Text: Assessment 50 year old male with a PSH of cholecystectomy presents with severe periumbilical pain. Found to have periumbilical hernia on CT ABD/PELVIS. Periumbilical hernia Cirrhosis Morbid obesity s/p surgical repair (07/10) Pain medication per surgery, IVF, slowly advance diet tonight abdominal binder in place Encourage incentive spirometer, colace BID Patient's cirrhosis is compensated and does not require additional work up He is also a low risk for alcohol withdrawal syndrome Dispo: anticipate dc home tomorrow, pending pain control and tolerating diet Time Spent Managing Pts Care (In Minutes): 35
[2020-07-10] MEDS: DOCUSATE NA 100 MG CAP PO SCH (20:29)
[2020-07-11] MEDS: KETOROLAC 30 MG/ML INJ IV SCH ×2 (00:02→06:03)
[2020-07-11] MEDS: Ringers Lactate 1,000 ML IV SCH (03:31)
[2020-07-11] MEDS: HYDROMORPHONE HCL 1 MG/ML INJ IV PRN ×2 (03:44→07:39)
[2020-07-11 04:09] LABS: Absolute Lymphocytes (CBC) 1.2 K/uL (0.7-4.9); Basophils % 0.6 % (0-1.3); Hematocrit 38.9 % (39.6-49.0); Lymphocytes % 10.2 % (15.3-44.8); MPV 9.8 fL (7.6-11.3); RBC Red Blood Cell Count 4.06 M/uL (4.33-5.43)
[2020-07-11 04:21] LABS: BUN Blood Urea Nitrogen 11 mg/dL (7-18); Bicarbonate 30 mmol/L (21-32); Glucose Level 110 mg/dL (74-106); Magnesium 2.3 mg/dL (1.8-2.4); Sodium Level 138 mmol/L (136-145)
[2020-07-11] MEDS: CEFOXITIN/SWI 1gm 1 GM/10 ML SYR IVP SCH (05:05)
[2020-07-11] MEDS: SODIUM CHLORIDE 0.9% 10ML INJ IV PRN (07:40)
[2020-07-11] MEDS: DOCUSATE NA 100 MG CAP PO SCH (07:40)
[2020-07-11] MEDS: PANTOPRAZOLE 40 MG INJ IVP SCH (07:55)
[2020-07-11 09:15] VITALS: O2SAT 96
--- NOTE | 2020-07-11 11:20 | PN ---
Date of Progress Note: 07/11/2020 Subjective: The patient is awake and alert. Tolerating diet. Passing gas. Pain is much better. Objective: Vital Signs: Stable. Afebrile. Abdomen: Benign. Dressing is clean, dry and intact. Laboratory Data: Reviewed. Assessment: Status post repair of incarcerated incisional hernia. Recommendation: The patient is cleared from surgery standpoint for discharge. Follow up with me in 1 week. Discharge instructions given. /MODL Voice ID: [id number] Report ID: [id number]
[2020-07-11 12:54] VITALS: BP 128/83; TEMP 97.2
--- NOTE | 2020-07-11 13:07 | P.DS ---
Admission Date: 07/10/20 Discharge Date: 07/11/20 Disposition: ROUTINE DISCHARGE Discharge Condition: GOOD Reason for Admission: Abdominal pain Consultations: General Surgery - Dr. Sheikh Procedures: CT Abd/Pelvis (07/09): Patient has developed a a periumbilical hernia superior and right side of the umbilicus since the October study. This is 6 cm in diameter with a 3 centimeter neck. Hernia contains a loop of distal small bowel but no wall thickening, edema or obstructive component evident. Correlation is needed with any localizing pain symptoms. Cirrhotic changes to the liver without focal lesion, ascites or other associated complication Laparoscopic repair of incarcerated incisional hernia with mesh (07/10) by Dr. Sheikh Problem List Periumbilical / incisional hernia (now s/p repair) Cirrhosis Morbid obesity Brief History of Present Illness: 50yo male who presented to ED due to 4 week history of diffuse abdominal pain that began as intermittent and now more constant. Workup in ED revealed a new incisional / right-sided periumbilical hernia containing small bowel. Hospital Course: Patient underwent laparoscopic repair on 07/10 and did well postoperatively. His diet was slowly advanced and on day of discharge, he was ambulating without issue, tolerating a regular diet, passing flatus, breathing comfortably, and pain was controlled with PO pain medication. He was discharged home to f/u with Dr. Sheikh. Vital Signs/Physical Exam: Temp Pulse Resp BP Pulse Ox 97.2 F 66 16 128/83 93 07/11/20 12:00 07/11/20 12:00 07/11/20 12:00 07/11/20 12:00 07/11/20 12:00 General: Alert, In no apparent distress, Oriented x3, Obese HEENT: Mucous membr. moist/pink, Sclerae nonicteric Respiratory: Clear to auscultation bilaterally, Normal air movement Cardiovascular: No edema, Regular rate/rhythm Gastrointestinal: Soft and benign, Other (abdominal binder in place), Tenderness (mild at incision sites) Musculoskeletal: No tenderness Integumentary: No rashes Neurological: Normal speech, Normal affect Laboratory Data at Discharge: WBC 11.5 K/uL (4.3-10.9) H 07/11/20 03:22 Hgb 13.0 g/dL (13.6-17.9) L 07/11/20 03:22 Hct 38.9 % (39.6-49.0) L 07/11/20 03:22 Plt Count 170 K/uL (152-406) 07/11/20 03:22 PT 12.7 SECONDS (9.5-12.5) H 07/09/20 19:48 INR 1.08 07/09/20 19:48 APTT 27.1 SECONDS (24.3-36.9) 07/09/20 19:48 Sodium 138 mmol/L (136-145) 07/11/20 03:22 Potassium 4.0 mmol/L (3.5-5.1) 07/11/20 03:22 BUN 11 mg/dL (7-18) 07/11/20 03:22 Creatinine 0.82 mg/dL (0.55-1.3) 07/11/20 03:22 Glucose 110 mg/dL (74-106) H 07/11/20 03:22 Magnesium 2.3 mg/dL (1.8-2.4) 07/11/20 03:22 Total Bilirubin 0.7 mg/dL (0.2-1.0) 07/09/20 17:30 AST 32 U/L (15-37) 07/09/20 17:30 ALT 32 U/L (12-78) 07/09/20 17:30 Alkaline Phosphatase 93 U/L (45-117) 07/09/20 17:30 Lipase 60 U/L (73-393) L 07/09/20 17:30 Home Medications: NK [No Home Meds] 07/09/20 Patient Discharge Instructions: May shower in am. Abdominal binder. Keep wound clean and dry Diet: Regular Activity: No lifting more than 10 lbs Followup: NONE,NONE [Primary Care Provider] - Tonny Sheikh MD [ACTIVE - CAN ADMIT] - 1 Week Time spent managing pt's care (in minutes): 35
== END 2020-07-11 11:50 | disposition home or self-care (01) | DRG 354 ==
LOC: ER 16:48 → ERHOLD 20:49 → 2ND 21:27 → OBSVTOIN 07-10 07:55
PROVIDERS: ADMIT Internal Medicine; ATTEND Hospitalist
PROC: 0WQF4ZZ Repair Abdominal Wall, Percutaneous Endoscopic Approach (ICD-10-PCS; principal; 2020-07-10 06:00)
DX: K43.0 Incisional hernia with obstruction, without gangrene (principal); Z68.41 Body mass index [BMI] 40.0-44.9, adult; E66.01 Morbid (severe) obesity due to excess calories; K74.60 Unspecified cirrhosis of liver; F17.210 Nicotine dependence, cigarettes, uncomplicated; Z90.49 Acquired absence of other specified parts of digestive tract; Z20.828 Contact with and (suspected) exposure to other viral communicable diseases
CPT/HCPCS: 36415; 74177; 80048; 80074; 80076; 81003; 81015; 82947; 83690; 83735; 85025; 85610; 85730; 88302; 94010; 96365; 96375; 99285; C9113; G0378; J0694; J1100; J1170; J2405; J2704; J2710; J3010; J7030; J7120; Q9967; U0002

== ENCOUNTER 2024-06-02 14:28 | Inpatient (IN) | payer SELFPAY ==
--- OUTSIDE RECORDS SUMMARY | 2024-06-02 14:31 | XMS REPORT | Continuity of Care Document ---
Author Name Unknown Address [address] [place] [address] [facility]connect Address [address] [place] [address] Care Team Providers Care Stone Chimney Mason Name Role Phone PCP, PATIENT DOES NOT HAVE A Primary Care Physic reid Unavailable SCHU[facility]ER DINH Attending Clinician Unavailable Fabrizio APPLICATION CHEMISTSchuyler Webber Attending Clinician [facility] DINH Admitting Clinician Unavailable Allergies, Adverse Reactions, Alerts Allergy Name Allergy Type Status Severity Reaction(s) Onset Date Inactive Date Treating Clinician Comments Source NO KNOWN ALLERGIE S Drug Class Active [facility] Encounters Start Date/Time End Date/Time Encounter Type Admission Type Attending Clinicians Care Facility Care Department Encounter ID Source 2019-10-28 09:26:07 2019-10-28 20:01:00 Emergency X [facility] ERT [id number] [facility] 2019-10-28 09:26:07 2019-10-28 20:01:00 Emergency Schu[facility] Din[facility] [id number]
[2024-06-02 15:35] LABS: Absolute Basophils 0.1 K/uL (0-0.5); Absolute Eosinophils 0.2 K/uL (0-0.5); Absolute Lymphocytes (CBC) 1.7 K/uL (0.7-4.9); Absolute Neutrophil 7.2 K/uL (1.8-8.0); Basophils % 0.8 % (0-1.3); Eosinophils % 1.8 % (0-4.4); Hematocrit 47.7 % (39.6-49.0); Hemoglobin 15.5 g/dL (13.6-17.9); Lymphocytes % 17.2 % (15.3-44.8); MCH 32.5 pg (27.0-35.0); MCHC 32.5 g/dL (32.0-36.0); Monocytes % 9.8 % (3.3-12.3); Neutrophils % 70.4 % (41.7-73.7); Nucleated Red Blood Cells % 0.4 % (0-0); Platelets 124 thou/uL (152-406); RBC Red Blood Cell Count 4.77 M/uL (4.33-5.43); Red Cell Distribution Width 16.8 % (12.1-15.2)
--- NOTE | 2024-06-02 15:42 | RAD REPORT ---
EXAMINATION: ONE VIEW CHEST XR CLINICAL INDICATION: hypoxia TECHNIQUE: Frontal chest projection is submitted. Examination is limited by patient positioning and t echnique. COMPARISON: 10/18/2019 FINDINGS: The lungs are underinflated resulting in vascular crowding. Moderate pulmonary edema may also be pres ent. The heart is upper limit of normal in size. No displaced fractures identified. IMPRESSION: Cbaf-ht-gwghtzys CHF is possible. Assessment is limited by underinflated lungs.
--- NOTE | 2024-06-02 15:43 | RAD REPORT ---
EXAMINATION: XR RIGHT SHOUDLER CLINICAL INDICATION: Male, 54 years old. PAIN RIGHT [facility] MA[facility] PAIN Bed Name: 15 TECHNIQUE:Two view radiograph of theright shoulder were obtained. COMPARISON: No prior exam. FINDINGS: High riding humeral head noted likely indicating underlying rotator cuff tear. AC joint and glenohumeral joint arthritic changes are present. No acute fracture or dislocation seen.
[2024-06-02 16:45] LABS: Anion Gap 4.3 mEq/L (5.0-15.0); Magnesium 2.2 mg/dL (1.6-2.4); Potassium 4.3 mEq/L (3.5-5.1); Troponin High Sensitivity 15.7 pg/mL (<58.9)
--- NOTE | 2024-06-02 17:02 | EDPHYS ---
Physician Documentation [facility] Name: Blane Marquez Age: 54 yrs Sex: Male : 1970 Arrival Date: 06/02/2024 Time: 14:28 Bed 15 Private MD: ED Physician Herve Huffman HPI: 06/02 15:01 This 54 yrs old Male presents to ER via Ambulatory with complaints of Shoulder ms3 Pain. 15:01 54-year-old male with past medical history of cirrhosis, rotator cuff problem presents ms3 to the emergency department for right shoulder pain that he rates a 10/10. Patient states he took a 7.5 mg hydrocodone without relief of his symptoms. Patient endorses shortness of breath. Patient denies nausea, vomiting, chest pain. Historical: - Allergies: 14:37 tuna fish; ll1 - PMHx: 14:37 Cirrhosis; rotator cuff problem (Cirrhosis); ll1 - PSHx: 14:37 hernia repair (Cirrhosis); ll1 - Immunization history:: Adult Immunizations up to date. - Infectious Disease History:: Denies. - Social history:: Smoking status: Patient reports the use of cigarette tobacco products, smokes .25 packs per day. ROS: 15:01 Constitutional: Negative for fever, and chills. Cardiovascular: Negative for chest ms3 pain, and palpitations. 15:01 Abdomen/GI: Negative for abdominal pain, nausea, vomiting, diarrhea, and constipation, MS/Extremity: Negative for injury and deformity, Skin: Negative for injury, rash, and discoloration, 15:01 Respiratory: Positive for shortness of breath, Exam: 15:01 Chest/axilla: Normal chest wall appearance and motion. Nontender with no deformity. ms3 Cardiovascular: Regular rate and rhythm with a normal S1 and S2. No gallops, murmurs, or rubs. Normal PMI, no JVD. No pulse deficits. Respiratory: Lungs have equal breath sounds bilaterally, clear to auscultation and percussion. No rales, rhonchi or wheezes noted. No increased work of breathing, no retractions or nasal flaring. Abdomen/GI: Soft, non-tender, with normal bowel sounds. No distension or tympany. No guarding or rebound. No evidence of tenderness throughout. Skin: Warm, dry with normal turgor. Normal color with no rashes, no lesions, and no evidence of cellulitis. 15:01 Constitutional: The patient appears obese, 15:01 Musculoskeletal/extremity: Extremities: noted in the Right shoulder: decreased ROM, pain, 16:45 ECG was reviewed by the Attending Physician. ms3 Vital Signs: 14:38 BP 170 / 72; Pulse 83; Resp 20; Temp 97.3; Weight 163.29 kg; Height 5 ft. 5 in. ; Pain ll1 10/10; 14:47 Pulse Ox 81% on 3 lpm NC; ll1 15:30 BP 157 / 82; Pulse 89; Resp 22; Pulse Ox 90% on 6 lpm NC; cm10 17:30 BP 144 / 79; Pulse 71; Resp 22; Pulse Ox 92% on 6 lpm NC; cm10 20:00 BP 108 / 58; Pulse 79; Resp 20; Temp 97.9(O); Pulse Ox 99% on 4 lpm NC; Pain 0/10; rg5 21:23 BP 138 / 72; Pulse 79; Resp 20; Temp 98(O); Pulse Ox 98% on 4 lpm NC; Pain 0/10; rg5 14:38 Body Mass Index 59.91 (163.29 kg, 165.1 cm) ll1 14:38 Pain Scale: Adult ll1 20:00 Pain Scale: Adult rg5 21:23 Pain Scale: Adult rg5 MDM: 15:01 Patient medically screened. ms3 15:01 Differential diagnosis: tendonitis, COPD versus CHF versus PE. ms3 18:50 Data reviewed: vital signs, nurses notes, lab test result(s), EKG, radiologic studies, ms3 and as a result, I will admit patient. Consideration of Admission/Observation Patient was admitted/placed on observation. Management of patient was discussed with the following: Hospitalist: Dr Sheehan. I considered the following discharge prescriptions or medication management in the emergency department Medications were administered in the Emergency Department. See MAR. Independent interpretation of the following test(s) in the Emergency Department EKG: See my EKG interpretation above. Counseling: I had a detailed discussion with the patient and/or guardian regarding the historical points, exam findings, and any diagnostic results supporting the discharge/admit diagnosis, lab results, radiology results, the need for further work-up and treatment in the hospital. ED course: Discussed necessity for admission with patient. Patient understands and agrees with plan. All questions were answered. 06/02 14:46 Order name: Basic Metabolic Panel; Complete Time: 16:47 ms3 06/02 14:46 Order name: CBC with Diff; Complete Time: 15:51 ms3 06/02 14:46 Order name: D-Dimer; Complete Time: 16:47 ms3 06/02 14:46 Order name: Magnesium; Complete Time: 16:47 ms3 06/02 14:46 Order name: Troponin HS; Complete Time: 16:47 ms3 06/02 16:06 Order name: BNP; Complete Time: 16:47 ms3 06/02 17:42 Order name: ABG Arterial Blood Gas; Complete Time: 18:57 EDMS 06/02 17:53 Order name: Urinalysis w/ reflexes EDMS 06/02 17:53 Order name: CBC with Automated Diff EDMS 06/02 17:53 Order name: CBC with Automated Diff EDMS 06/02 17:53 Order name: Comprehensive Metabolic Panel EDMS 06/02 17:53 Order name: Comprehensive Metabolic Panel EDMS 06/02 17:53 Order name: Magnesium EDMS 06/02 17:53 Order name: Magnesium EDMS 06/02 17:53 Order name: Phosphorus EDMS 06/02 17:53 Order name: Phosphorus EDMS 06/02 17:53 Order name: Thyroid Stimulating Hormone EDMS 06/02 17:53 Order name: Thyroid Stimulating Hormone EDMS 06/02 14:46 Order name: XRAY Chest (1 view); Complete Time: 15:51 ms3 06/02 14:46 Order name: Shoulder Right (2 View) XRAY; Complete Time: 15:51 ms3 06/02 17:43 Order name: Chest For Pe Angio EDMS 06/02 17:44 Order name: CONS Physician Consult EDMS 06/02 14:46 Order name: Cardiac monitoring; Complete Time: 15:37 ms3 06/02 14:46 Order name: EKG - Nurse/Tech; Complete Time: 15:37 ms3 06/02 14:46 Order name: IV Saline Lock; Complete Time: 15:37 ms3 06/02 14:46 Order name: Labs collected and sent; Complete Time: 15:37 ms3 06/02 14:46 Order name: O2 Per Protocol; Complete Time: 15:37 ms3 06/02 14:46 Order name: O2 Sat Monitoring; Complete Time: 15:37 ms3 EC:45 Rate is 75 beats/min. Rhythm is regular. QRS Graham is Normal. MO interval is normal. QRS ms3 interval is normal. Clinical impression: Normal ECG. Interpreted by me. Reviewed by me. Administered Medications: No medications were administered Disposition Summary: 06/02/24 17:01 Hospitalization Ordered Notes: Hospitalization Status: Inpatient Admission ms3 Provider: Kraig Sheehan ms3 Location: Telemetry/MedSurg (Inpatient) ms3 Condition: Stable ms3 Problem: new ms3 Symptoms: are unchanged ms3 Bed/Room Type: Standard ms3 Room Assignment: 218(06/02/24 20:34) cg Diagnosis - Heart failure, unspecified ms3 - Acute respiratory failure with hypoxia ms3 Forms: - Medication Reconciliation Form ms3 - SBAR form ms3 - Leadership Thank You Letter ms3 Signatures: Dispatcher [employer] EDMS Zonia Benedict, RN RN Dang White RN RN ll1 Herve Huffman DO DO ms3 Fior José RN RN cm10 Corrections: (The following items were deleted from the chart) 14:47 14:46 BASIC METABOLIC PANEL+C.LAB.BRZ ordered. EDMS EDMS 14:47 14:46 CBC+H.LAB.BRZ ordered. EDMS EDMS 14:47 14:46 D-DIMER+COAG.LAB.BRZ ordered. EDMS EDMS 14:47 14:46 MAGNESIUM+C.LAB.BRZ ordered. EDMS EDMS 14:47 14:46 Troponin High Sensitivity+C.LAB.BRZ ordered. EDMS EDMS 14:47 14:47 Shoulder Right 2 View+RAD.RAD.BRZ ordered. EDMS EDMS 20:34 17:01 ms3 cg
--- NOTE | 2024-06-02 17:02 | ER ---
Nurse's Notes [facility] Name: Blane Marquez Age: 54 yrs Sex: Male : 1970 Arrival Date: 06/02/2024 Time: 14:28 Bed 15 Private MD: Diagnosis: Heart failure, unspecified;Acute respiratory failure with hypoxia Presentation: 06/02 14:38 Chief complaint: Patient states: R shoulder pain for 3-4 days. Coronavirus screen: ll1 Client denies travel out of the [place] in the last 14 days. At this time, the client does not indicate any symptoms associated with coronavirus-19. Ebola Screen: Patient denies travel to an Ebola-affected area in the 21 days before illness onset. Initial Sepsis Screen: Does the patient meet any 2 criteria? No. Patient's initial sepsis screen is negative. Does the patient have a suspected source of infection? No. Patient's initial sepsis screen is negative. Risk Assessment: Do you want to hurt yourself or someone else? Patient reports no desire to harm self or others. Onset of symptoms was May 31, 2024. 14:38 Method Of Arrival: Ambulatory 1 14:38 Acuity: MICHA 2 ss Historical: - Allergies: 14:37 tuna fish; ll1 - PMHx: 14:37 Cirrhosis; rotator cuff problem (Cirrhosis); ll1 - PSHx: 14:37 hernia repair (Cirrhosis); ll1 - Immunization history:: Adult Immunizations up to date. - Infectious Disease History:: Denies. - Social history:: Smoking status: Patient reports the use of cigarette tobacco products, smokes .25 packs per day. Screenin:30 [facility] ED Fall Risk Assessment (Adult) History of falling in the last 3 months, cm10 including since admission No falls in past 3 months (0 pts) Confusion or Disorientation No (0 pts) Intoxicated or Sedated No (0 pts) Impaired Gait No (0 pts) Mobility Assist Device Used Yes (1 pt) Altered Elimination No (0 pt) Score/Fall Risk Level 0 - 2 = Low Risk Oriented to surroundings, Maintained a safe environment, Hourly rounding (assess needs \T\ fall precautionary measures) done. Abuse screen: Denies threats or abuse. Denies injuries from another. Nutritional screening: No deficits noted. Tuberculosis screening: No symptoms or risk factors identified. Assessment: 15:30 General: Appears in no apparent distress. comfortable, Behavior is calm, cooperative, cm10 appropriate for age. Pain: Complains of pain in Shoulder. Neuro: No deficits noted. Level of Consciousness is awake, alert, obeys commands, Oriented to person, place, time, situation, Appropriate for age. Respiratory: No deficits noted. Reports shortness of breath Airway is patent Respiratory effort is even, labored, Respiratory pattern is symmetrical. 18:31 Reassessment: Patient appears in no apparent distress at this time. No changes from cm10 previously documented assessment. Patient and/or family updated on plan of care and expected duration. Pain level reassessed. Patient is alert, oriented x 3, equal unlabored respirations, skin warm/dry/pink. 18:34 Reassessment: Pt ambulating to restroom at this timel. cm10 18:43 Reassessment: Pt placed on BiPap at this time. cm10 19:15 General: Appears in no apparent distress. Behavior is calm, cooperative. Pain: Denies rg5 pain. Cardiovascular: Heart tones S1 S2 Patient's skin is warm and dry. Rhythm is sinus rhythm. Respiratory: Airway is patent Respiratory effort is even, Respiratory pattern is regular, symmetrical. GI: Abdomen is obese. : No signs and/or symptoms were reported regarding the genitourinary system. EENT: No deficits noted. 20:30 Reassessment: No changes from previously documented assessment. Patient and/or family rg5 updated on plan of care and expected duration. Pain level reassessed. Patient is alert, oriented x 3, equal unlabored respirations, skin warm/dry/pink. 21:24 General: Appears in no apparent distress. Behavior is calm, cooperative, appropriate rg5 for age. Pain: Denies pain. Neuro: Level of Consciousness is awake, alert, obeys commands, Oriented to person, place, time. Respiratory: Reports shortness of breath at rest Airway is patent Respiratory effort is even, Respiratory pattern is symmetrical. GI: Abdomen is obese. : No signs and/or symptoms were reported regarding the genitourinary system. EENT: No deficits noted. Derm: Skin is dry, Skin is normal, Skin temperature is warm. Musculoskeletal: Circulation, motion, and sensation intact. Range of motion: intact in all extremities. Vital Signs: 14:38 BP 170 / 72; Pulse 83; Resp 20; Temp 97.3; Weight 163.29 kg; Height 5 ft. 5 in. ; Pain ll1 10/10; 14:47 Pulse Ox 81% on 3 lpm NC; ll1 15:30 BP 157 / 82; Pulse 89; Resp 22; Pulse Ox 90% on 6 lpm NC; cm10 17:30 BP 144 / 79; Pulse 71; Resp 22; Pulse Ox 92% on 6 lpm NC; cm10 20:00 BP 108 / 58; Pulse 79; Resp 20; Temp 97.9(O); Pulse Ox 99% on 4 lpm NC; Pain 0/10; rg5 21:23 BP 138 / 72; Pulse 79; Resp 20; Temp 98(O); Pulse Ox 98% on 4 lpm NC; Pain 0/10; rg5 14:38 Body Mass Index 59.91 (163.29 kg, 165.1 cm) ll1 14:38 Pain Scale: Adult ll1 20:00 Pain Scale: Adult rg5 21:23 Pain Scale: Adult rg5 ED Course: 14:36 Patient arrived in ED. im 14:39 Triage completed. ll1 14:40 Herve Huffman DO is Attending Physician. ms3 14:40 Arm band placed on Patient placed in an exam room, on a stretcher. ll1 14:57 Fior José, RN is Primary Nurse. cm10 15:30 Patient has correct armband on for positive identification. Placed in gown. Bed in low cm10 position. Call light in reach. Side rails up X2. Provided Education on: ER process and procedures.. Client placed on continuous cardiac and pulse oximetry monitoring. NIBP monitoring applied. radiology teacher on. 15:30 Initial lab(s) drawn, by me, sent to lab. EKG done, by ED staff, reviewed by Herve Huffman DO. Inserted saline lock: 20 gauge in right antecubital area, using aseptic technique. Blood collected. Flushed with 10 mL NS. 15:30 Oxygen administration via nasal cannula \T\ 6L/min. cm10 15:34 XRAY Chest (1 view) In Process Unspecified. EDMS 15:34 Shoulder Right (2 View) XRAY In Process Unspecified. EDMS 16:59 Kraig Sheehan is Hospitalizing Provider. ms3 17:02 confirmation number provided from [facility] for bed ([id number]). bc6 19:08 Inserted saline lock: 20 gauge in left antecubital area, using aseptic technique. cm10 Flushed with 10 mL NS. 19:22 Rodriguez Mckee, RN is Primary Nurse. rg5 20:43 Inserted saline lock: 20 gauge in left antecubital area, using aseptic technique. vc1 20:45 Inserted saline lock: 20 gauge in right antecubital area, using aseptic technique. rg5 Blood collected. Flushed with 10 mL NS. 21:08 No provider procedures requiring assistance completed. rg5 21:30 Patient admitted, IV remains in place. rg5 Administered Medications: No medications were administered Medication: 15:30 VIS not applicable for this client. cm10 Outcome: 17:01 Decision to Hospitalize by Provider. ms3 21:50 Admitted to Med/surg accompanied by nurse, with oxygen, rg5 21:50 Condition: stable 21:50 Instructed on the need for admit, 21:50 Patient left the ED. rg5 Signatures: Dispatcher [employer] EDMS Neli Patino RN RN ss Dang White RN RN ll1 Herve Huffman, DO DO ms3 Lisa Mckay RN RN vc1 Sandie Wellington bc6 Merline Bhandari Clarissa, RN RN cm10 Rodriguez Mckee, RN RN rg5 Corrections: (The following items were deleted from the chart) 14:56 14:38 Acuity: MICHA 3 ll1 ss
[2024-06-02] MEDS ORDERED: ACETAMINOPHEN 500 MG TAB PO PRN (17:43)
[2024-06-02] MEDS ORDERED: ONDANSETRON 4 MG/2 ML VIAL IV PRN (17:43)
--- NOTE | 2024-06-02 18:24 | P.HP ---
Certification for Inpatient Patient admitted to: Inpatient With expected LOS: >2 Midnights Practitioner: I am a practitioner with admitting privileges, knowledge of patient current condition, hospital course, and medical plan of care. Services: Services provided to patient in accordance with Admission requirements found in Title 42 Section 412.3 of the Code of Federal Regulations Patient History Date of Service: 06/02/24 Reason for admission: Shoulder pain, shortness of breath History of Present Illness: 54-year-old gentleman with a history of liver cirrhosis, morbid obesity, arthritis presented to the emergency department with a complaint of bilateral shoulder pain which is worse on the right. Patient noted to be hypoxic with oxygen saturation of 70% on room air during evaluation in the ED. he reported chronic shortness of breath which is worse with exertion. Workup in the emergency department with chest x-ray demonstrated evidence of congestive heart failure, blood work showed mildly elevated D-dimer. Blood chemistry shows mild hyponatremia and elevated bicarb level which may be compensatory to respiratory CO2 retention. Patient placed on oxygen by nasal cannula, CTA thorax requested to rule out PE. Arterial blood gas ordered and patient admitted for further management. Allergies No Known Allergies Allergy (Unverified 10/18/19 20:24) Home Medications: NK [No Home Meds] 07/09/20 - Past Medical/Surgical History Diabetic: No -: cirrhosis -: tobacco abuse -: Morbid obesity -: Surgery on the foot after a brown recluse spider bite -: cholecystectomy -: Hernia repair - Family History Mother -: Heart disease, Hypertension, Other (see notes) Notes: sleep apnea. kidney stones Father -: Diabetes Notes: sleep apnea - Social History Smoking Status: Current some day smoker Alcohol use: Yes CD- Drugs: No Caffeine use: Yes Review of Systems Other: Patient denied any chest pain. He denied any abdominal pain. He endorsed headache, no syncope. Except as documented, all other systems reviewed and negative. Physical Examination - Physical Exam General: Alert, In no apparent distress, Oriented x3, Obese HEENT: Atraumatic, PERRLA, EOMI, Sclerae nonicteric Neck: Supple, JVD not distended, Other (Short neck) Respiratory: Diminished (Bilateral), Other (Mild bibasilar crackles) Cardiovascular: Regular rate/rhythm, Normal S1 S2, Edema (Bilateral lower extremities) Capillary refill: <2 Seconds Gastrointestinal: Normal bowel sounds, Soft and benign, No tenderness, Other (Obese abdomen) Musculoskeletal: No tenderness, Swelling (Bilateral legs) Integumentary: Other (Bilateral venous stasis dermatitis of lower extremities) Neurological: Normal speech, Normal strength at 5/5 x4 extr, Cranial nerves 3-12 intact Lymphatics: No axilla or inguinal lymphadenopathy - Studies Laboratory Data (last 24 hrs) 06/02/24 06/02/24 16:10 15:24 WBC 10.20 Hgb 15.5 Hct 47.7 Plt Count 124 L Sodium 133 L Potassium 4.3 BUN 14 Creatinine 0.74 Glucose 109 H Magnesium 2.2 Assessment and Plan - Problems (Diagnosis) (1) Acute respiratory failure with hypoxia Current Visit: Yes Status: Acute (2) Cirrhosis Current Visit: No Status: Acute (3) Morbid obesity Current Visit: No Status: Acute (4) Acute diastolic heart failure Current Visit: Yes Status: Acute (5) Hyponatremia Current Visit: Yes Status: Acute - Plan Acute respiratory failure with hypoxia Morbid obesity COPD exacerbation Patient suspected to have obesity hypoventilation syndrome or sleep apnea. Admit patient to medical floor Obtain blood gas to assess for respiratory acidosis and CO2 retention. Oxygen supplementation as needed. BiPAP pending blood gas result. Start IV steroid Scheduled bronchodilators. Pulmonary consult Acute diastolic heart failure Hyponatremia Chest x-ray demonstrating evidence of congestive heart failure. Start IV Lasix Monitor intake and output Monitor electrolytes. Liver cirrhosis IV Lasix as above Patient may benefit from spironolactone. Check PT and INR. DVT prophylaxis: Lovenox Advanced directive: Full code - Advance Directives Does patient have a Living Will: No Does patient have a Durable POA for Healthcare: No
[2024-06-02 18:54] LABS: Arterial Blood Carboxyhemoglob 5.1 % (0-1.5); Blood Gas THB 16.6 g/dl (12-18); Blood O2 Saturation 89.1 % (92-98.5)
[2024-06-02] MEDS: IPRATROPIUM BROM 0.5MG/2.5ML NEB SCH (19:00)
[2024-06-02] MEDS: ALBUTEROL 2.5 MG/3 ML NEB SOL NEB SCH (19:00)
--- NOTE | 2024-06-02 20:20 | RAD REPORT ---
EXAMINATION: CTA CHEST PE CLINICAL INDICATION: Hypoxia, morbid obesity TECHNIQUE: This examination was performed according to an angiographic protocol with 3D post-processi ng. This involves 3D reconstructions, MIPs, volume rendered images and/or shaded surface rendering. One or more of the following dose reduction techniques were used: Automated exposure control, adjustm ent of the mA and/or kV according to patient size, and/or iterative reconstruction. Unless otherwise specified, incidental findings do not require dedicated imaging follow-up. COMPARISON: 06/02/2024 FINDINGS: LUNGS: The lungs are underinflated with subsegmental atelectasis in both lung bases. PLEURA: No pleural effusion. No pneumothorax. MEDIASTINUM AND LYMPH NODES: No mediastinal mass or fluid collection. Normal size mediastinal, hilar, and axillary lymph nodes. THORACIC AORTA: Normal caliber and configuration. PULMONARY ARTERIES: Normal caliber. No evidence of pulmonary emboli to the subsegmental level. OSSEOUS STRUCTURES AND CHEST WALL: Intact. UPPER ABDOMEN: No significant abnormalities. IMPRESSION: No evidence of pulmonary emboli to the subsegmental level. Lungs are underinflated causing vascular crowding.
[2024-06-02] MEDS: ENOXAPARIN 40 MG/0.4 ML SQ SCH (22:50)
[2024-06-02] MEDS: FUROSEMIDE 40 MG/4 ML VIAL IV SCH (22:50)
[2024-06-02] MEDS: METHYLPREDNISOLONE 40 MG INJ IV SCH (22:50)
[2024-06-03 00:26] LABS: Specific Gravity 1.008 (1.005-1.030); Urine Bilirubin NEGATIVE (Negative); Urine Blood Negative (Negative); Urine Clarity Clear (Clear); Urine Color Colorless (Yellow); Urine Glucose NEGATIVE (Negative); Urine Ketones NEGATIVE (Negative); Urine Microscopic Reflex YN NO UMIC; Urine Nitrite NEGATIVE (Negative); Urine Protein NEGATIVE (Negative); Urine Urobilinogen Normal (Normal)
--- NOTE | 2024-06-03 02:07 | P.PN ---
Date of Service: 06/03/24 Patient still lethargic Not waking up On BiPAP Will move to ICU Monitor closely in ICU
[2024-06-03 04:09] LABS: Arterial Blood Carboxyhemoglob 4.2 % (0-1.5); Blood Gas Oxyhemoglobin 88.4 % (94-97); Blood O2 Saturation 93.1 % (92-98.5)
[2024-06-03 05:55] LABS: Absolute Basophils 0.1 K/uL (0-0.5); Absolute Lymphocytes (CBC) 0.9 K/uL (0.7-4.9); Absolute Monocytes 0.2 K/uL (0.1-1.3); Absolute Neutrophil 7.6 K/uL (1.8-8.0); Basophils % 0.9 % (0-1.3); Eosinophils % 0.3 % (0-4.4); Hematocrit 47.2 % (39.6-49.0); Hemoglobin 15.5 g/dL (13.6-17.9); Lymphocytes % 9.9 % (15.3-44.8); MCH 32.7 pg (27.0-35.0); MCHC 32.8 g/dL (32.0-36.0); MCV 99.9 fL (80-100); MPV 8.7 fL (7.6-11.3); Monocytes % 2.7 % (3.3-12.3); Neutrophils % 86.2 % (41.7-73.7); Nucleated Red Blood Cells % 0.2 % (0-0); Platelets 122 thou/uL (152-406); RBC Red Blood Cell Count 4.73 M/uL (4.33-5.43); Red Cell Distribution Width 16.2 % (12.1-15.2)
[2024-06-03 06:23] LABS: Albumin 3.1 g/dL (3.4-5.0); Albumin/Globulin Ratio 0.7 (1.1-1.8); Anion Gap 3.6 mEq/L (5.0-15.0); Bilirubin Total 0.7 mg/dL (0.2-1.0); Globulin 4.5 g/dL (2.3-3.5); Magnesium 2.1 mg/dL (1.6-2.4); Potassium 4.6 mEq/L (3.5-5.1); Protein, Total 7.6 g/dL (6.4-8.2); Thyroid Stimulating Hormone 0.436 uIU/mL (0.358-3.740)
[2024-06-03 07:10] LABS: Atypical Lymphocytes 3 %; Blood Morphology Comment NOT SEEN (NOT SEEN); Differential Total Cells Count 100; Lymphocytes 5 % (15-42); Monocytes 5 % (0-10); Platelet Estimate DECR; Segmented Neutrophils 87 % (40-80)
[2024-06-03 07:11] LABS: Polychromasia 1+
[2024-06-03] MEDS: HYDROCODONE/APAP 5/325 MG TAB PO PRN (11:20)
--- NOTE | 2024-06-03 14:24 | P.PN ---
Subjective Date of Service: 06/03/24 Chief Complaint: Shoulder pain, shortness of breath According to report patient became more lethargic overnight. He was transferred to the ICU for close monitoring. Patient was on BiPAP all night and transitioned to oxygen by nasal cannula this morning. He is now tolerating 3 L oxygen by nasal cannula. His mental status has improved. He is complaining of bilateral shoulder pain, worse on the right. He stated he wheezes sometimes. Patient diuresed well with IV Lasix. Physical Examination - Vital Signs Temperature: 98 F Blood Pressure: 123/66 Pulse: 79 Respirations: 24 Pulse Ox (%): 95 - Studies Laboratory Data (last 24 hrs) 06/02/24 06/02/24 16:10 15:24 WBC 10.20 Hgb 15.5 Hct 47.7 Plt Count 124 L Sodium 133 L Potassium 4.3 BUN 14 Creatinine 0.74 Glucose 109 H Magnesium 2.2 Assessment And Plan - Current Problems (Diagnosis) (1) Acute respiratory failure with hypoxia Current Visit: Yes Status: Acute (2) Cirrhosis Current Visit: No Status: Acute (3) Morbid obesity Current Visit: No Status: Acute (4) Acute diastolic heart failure Current Visit: Yes Status: Acute (5) Hyponatremia Current Visit: Yes Status: Acute - Plan Acute respiratory failure with hypoxia and hypercapnia Morbid obesity COPD exacerbation Obesity hypoventilation syndrome Acute metabolic encephalopathy Patient also likely has obstructive sleep apnea. Arterial blood gas showed CO2 retention and respiratory acidosis. Mental status has improved. Patient transition from BiPAP to oxygen by nasal cannula Continue IV steroid Scheduled bronchodilators. Pulmonary consulted BiPAP at night. Acute diastolic heart failure Hyponatremia Chest x-ray demonstrating evidence of congestive heart failure. Continue IV Lasix Obtain echocardiogram Monitor intake and output Monitor electrolytes. Liver cirrhosis IV Lasix as above Start spironolactone. DVT prophylaxis: Lovenox Advanced directive: Full code
--- NOTE | 2024-06-03 16:34 | EKG ---
Test Date: 2024-06-02 Test Time: 15:32:23 Health Information Tech: YVROSE MEASUREMENT RESULTS: Intervals: Rate: 75 OH: 144 QRSD: 94 QT: 370 QTc: 413 [place]: P: 35 OH: 144 QRS: 246 T: 22 INTERPRETIVE STATEMENTS: Sinus rhythm with fusion complexes Low voltage QRS Borderline ECG Compared to ECG 10/18/2019 15:38:40 Fusion complex(es) now present Low QRS voltage now present Sinus arrhythmia no longer present Electronically Signed On 06-03-24 16:32:09 CDT by Servando Vasquez
[2024-06-03 17:28] LABS: PT Prothrombin Time 14.2 SECONDS (9.4-12.5); Protime INR 1.28
[2024-06-03 20:02] VITALS: BMI 58.8
[2024-06-04 05:36] LABS: Absolute Lymphocytes (CBC) 0.8 K/uL (0.7-4.9); Absolute Monocytes 0.5 K/uL (0.1-1.3); Absolute Neutrophil 8.7 K/uL (1.8-8.0); Basophils % 0.3 % (0-1.3); Hematocrit 47.7 % (39.6-49.0); Hemoglobin 15.5 g/dL (13.6-17.9); Lymphocytes % 8.3 % (15.3-44.8); MCH 32.4 pg (27.0-35.0); MCHC 32.5 g/dL (32.0-36.0); MCV 99.7 fL (80-100); MPV 8.9 fL (7.6-11.3); Monocytes % 4.6 % (3.3-12.3); Neutrophils % 86.8 % (41.7-73.7); Nucleated Red Blood Cells % 0.1 % (0-0); Platelets 122 thou/uL (152-406); RBC Red Blood Cell Count 4.79 M/uL (4.33-5.43); Red Cell Distribution Width 16.1 % (12.1-15.2)
[2024-06-04 05:52] LABS: Albumin/Globulin Ratio 0.7 (1.1-1.8); Anion Gap 2.3 mEq/L (5.0-15.0); Bilirubin Total 0.7 mg/dL (0.2-1.0); Globulin 4.4 g/dL (2.3-3.5); Potassium 4.3 mEq/L (3.5-5.1); Protein, Total 7.4 g/dL (6.4-8.2)
[2024-06-04] MEDS: SPIRONOLACTONE 25 MG TABLET PO SCH (08:18)
--- NOTE | 2024-06-04 11:14 | P.PN ---
Subjective Date of Service: 06/04/24 Chief Complaint: Shoulder pain, shortness of breath Patient is doing much better today. He reports significant improvement in SOB. Pt used BIPAP last night. He is tolerating room air with SaO2 > 90. Alert and oriented. His mental status has improved. No wheezing. Physical Examination - Vital Signs Temperature: 98.1 F Blood Pressure: 128/66 Pulse: 81 Respirations: 25 Pulse Ox (%): 91 - Physical Exam General: Alert, In no apparent distress, Obese HEENT: Mucous membr. moist/pink Neck: Supple, JVD not distended Respiratory: Clear to auscultation bilaterally, Diminished Cardiovascular: Regular rate/rhythm, Normal S1 S2, Edema (Bilateral lower extremities) Gastrointestinal: Normal bowel sounds, Soft and benign, No tenderness Musculoskeletal: No swelling, No tenderness Integumentary: No cyanosis Neurological: Normal strength at 5/5 x4 extr Assessment And Plan - Current Problems (Diagnosis) (1) Acute respiratory failure with hypoxia Current Visit: Yes Status: Acute (2) Cirrhosis Current Visit: No Status: Acute (3) Morbid obesity Current Visit: No Status: Acute (4) Acute diastolic heart failure Current Visit: Yes Status: Acute (5) Hyponatremia Current Visit: Yes Status: Acute - Plan Acute respiratory failure with hypoxia and hypercapnia Morbid obesity COPD exacerbation Obesity hypoventilation syndrome Acute metabolic encephalopathy Patient also likely has obstructive sleep apnea. Arterial blood gas showed CO2 retention and respiratory acidosis. Mental status has improved to baseline. Patient is using BIPAP at night. He is tolerating room air with good oxygen saturation. Continue IV steroid Scheduled bronchodilators. Pulmonary consulted Acute diastolic heart failure Hyponatremia Chest x-ray demonstrating evidence of congestive heart failure. Continue IV Lasix Monitor intake and output Monitor electrolytes. Liver cirrhosis IV Lasix as above Continue spironolactone. DVT prophylaxis: Lovenox Advanced directive: Full code
[2024-06-05 05:32] LABS: Absolute Lymphocytes (CBC) 0.7 K/uL (0.7-4.9); Absolute Monocytes 0.6 K/uL (0.1-1.3); Absolute Neutrophil 9.1 K/uL (1.8-8.0); Basophils % 0.4 % (0-1.3); Hematocrit 49.8 % (39.6-49.0); Hemoglobin 16.1 g/dL (13.6-17.9); Lymphocytes % 6.9 % (15.3-44.8); MCH 32.2 pg (27.0-35.0); MCHC 32.3 g/dL (32.0-36.0); MCV 99.5 fL (80-100); MPV 8.6 fL (7.6-11.3); Monocytes % 5.8 % (3.3-12.3); Neutrophils % 86.9 % (41.7-73.7); Nucleated Red Blood Cells % 0.1 % (0-0); Platelets 119 thou/uL (152-406); RBC Red Blood Cell Count 5.01 M/uL (4.33-5.43); Red Cell Distribution Width 16.6 % (12.1-15.2)
[2024-06-05 05:47] LABS: Anion Gap 6.2 mEq/L (5.0-15.0); Potassium 4.2 mEq/L (3.5-5.1)
--- NOTE | 2024-06-05 13:08 | P.PN ---
Subjective Date of Service: 06/05/24 Chief Complaint: Shoulder pain, shortness of breath Patient states he feels much better today. Nursing staff report patient has been up and ambulating in the room. He used BiPAP last night He has been tolerating room air. Alert and oriented. No wheezing. Patient report spider bite on his right leg prior to admission which is now hurting and he is concerned about it being infected. Physical Examination - Vital Signs Temperature: 97.8 F Blood Pressure: 158/69 Pulse: 87 Respirations: 24 Pulse Ox (%): 96 - Physical Exam General: Alert, In no apparent distress, Oriented x3, Obese HEENT: Mucous membr. moist/pink, Sclerae nonicteric Neck: Supple, JVD not distended Respiratory: Clear to auscultation bilaterally, Diminished Cardiovascular: Regular rate/rhythm, Normal S1 S2, Edema (Mild bilateral lower extremity edema) Gastrointestinal: Normal bowel sounds, Soft and benign, Non-distended Musculoskeletal: No swelling, No tenderness Integumentary: No cyanosis, Other (Small skin opening on the lateral aspect of the right leg, no surrounding erythema.) Neurological: Normal speech, Normal strength at 5/5 x4 extr, Cranial nerves 3-12 intact Assessment And Plan - Current Problems (Diagnosis) (1) Acute respiratory failure with hypoxia Current Visit: Yes Status: Acute (2) Cirrhosis Current Visit: No Status: Acute (3) Morbid obesity Current Visit: No Status: Acute (4) Acute diastolic heart failure Current Visit: Yes Status: Acute (5) Hyponatremia Current Visit: Yes Status: Acute - Plan Acute respiratory failure with hypoxia and hypercapnia Morbid obesity COPD exacerbation Obesity hypoventilation syndrome Acute metabolic encephalopathy Patient also likely has obstructive sleep apnea. Arterial blood gas showed CO2 retention and respiratory acidosis. Mental status has improved to baseline. Patient is using BIPAP at night. He is tolerating room air with good oxygen saturation. Continue IV steroid for 1 more day and transition to oral prednisone Scheduled bronchodilators. Awaiting pulmonary input. Acute diastolic heart failure Hyponatremia Chest x-ray demonstrating evidence of congestive heart failure. Transition IV Lasix to oral Lasix Monitor intake and output Monitor electrolytes. Liver cirrhosis Oral Lasix Continue spironolactone. Spider bite Start empiric Bactrim. DVT prophylaxis: Lovenox Advanced directive: Full code
[2024-06-05] MEDS: SMZ./TMP. 800/160 MG TABLET PO SCH (13:34)
[2024-06-06 05:53] VITALS: O2SAT 97
[2024-06-06 08:20] VITALS: BP 134/67
--- NOTE | 2024-06-06 08:56 | P.DS ---
Admission Date: 06/02/24 Discharge Date: 06/06/24 Disposition: ROUTINE DISCHARGE Discharge Condition: FAIR Reason for Admission: Shoulder pain, shortness of breath - Problems (1) Acute respiratory failure with hypoxia Status: Acute (2) Cirrhosis Status: Acute (3) Morbid obesity Status: Acute (4) Acute diastolic heart failure Status: Acute (5) Hyponatremia Status: Acute Brief History of Present Illness: 54-year-old gentleman with a history of liver cirrhosis, morbid obesity, arthritis presented to the emergency department with a complaint of bilateral shoulder pain which is worse on the right. Patient noted to be hypoxic with oxygen saturation of 70% on room air during evaluation in the ED. he reported chronic shortness of breath which is worse with exertion. Workup in the emergency department with chest x-ray demonstrated evidence of congestive heart failure, blood work showed mildly elevated D-dimer. Blood chemistry shows mild hyponatremia and elevated bicarb level which may be compensatory to respiratory CO2 retention. Patient placed on oxygen by nasal cannula, CTA thorax requested to rule out PE. Arterial blood gas ordered and patient admitted for further management. Hospital Course: Patient admitted to the medical floor and the following medical problems addressed Acute respiratory failure with hypoxia and hypercapnia Morbid obesity COPD exacerbation Obesity hypoventilation syndrome Acute metabolic encephalopathy Patient also likely has obstructive sleep apnea. Arterial blood gas showed CO2 retention and respiratory acidosis. Patient was treated with scheduled bronchodilators, IV steroid and BiPAP Mental status has improved to baseline. He continued to use BIPAP during sleep. Respiratory status improved, patient was weaned off oxygen to room air He has been tolerating room air with good oxygen saturation. Patient was evaluated by pulmonary Dr. Craig and outpatient BiPAP recommended. Overall patient has clinically improved, respiratory status is back to baseline. He is discharged with prednisone taper, bronchodilators. Dr. Craig recommended follow-up with him in the office for arrangement for CPAP. Acute diastolic heart failure Hyponatremia Chest x-ray demonstrating evidence of congestive heart failure. He was treated with IV Lasix and transitioned to oral Lasix Liver cirrhosis Managed with oral Lasix and spironolactone. Spider bite Patient placed on Bactrim to complete 5 days of treatment. Vital Signs/Physical Exam: Temp Pulse Resp BP Pulse Ox 97 F 76 17 134/67 92 06/06/24 04:00 06/06/24 08:20 06/06/24 07:03 06/06/24 08:20 06/06/24 07:03 General: Alert, In no apparent distress, Obese HEENT: Mucous membr. moist/pink Neck: JVD not distended Respiratory: Diminished (Bilateral) Cardiovascular: No edema, Regular rate/rhythm, Normal S1 S2 Gastrointestinal: Normal bowel sounds, Soft and benign, Non-distended Musculoskeletal: No swelling Laboratory Data at Discharge: WBC 10.50 thou/uL (4.3-10.9) 06/05/24 05:14 Hgb 16.1 g/dL (13.6-17.9) 06/05/24 05:14 Hct 49.8 % (39.6-49.0) H 06/05/24 05:14 Plt Count 119 thou/uL (152-406) L 06/05/24 05:14 PT 14.2 SECONDS (9.4-12.5) H 06/03/24 17:10 INR 1.28 06/03/24 17:10 Sodium 135 mEq/L (136-145) L 06/05/24 05:14 Potassium 4.2 mEq/L (3.5-5.1) 06/05/24 05:14 BUN 18 mg/dL (7-18) 06/05/24 05:14 Creatinine 0.64 mg/dL (0.70-1.30) L 06/05/24 05:14 Glucose 160 mg/dL (74-106) H 06/05/24 05:14 Phosphorus 3.0 mg/dL (2.5-4.9) 06/03/24 05:18 Magnesium 2.1 mg/dL (1.6-2.4) 06/03/24 05:18 Total Bilirubin 0.7 mg/dL (0.2-1.0) 06/04/24 05:07 AST 36 U/L (15-37) 06/04/24 05:07 ALT 46 U/L (16-61) 06/04/24 05:07 Alkaline Phosphatase 70 U/L (45-117) 06/04/24 05:07 Home Medications: Albuterol Neb [Proventil 0.083% Neb Soln] 2.5 mg NEB [id number] PRN #120 amp 06/06/24 Ipratropium Neb [Atrovent*] 0.5 mg NEB [id number] PRN #120 amp 06/06/24 Nebulizer 1 each MC TID PRN #1 ea 06/06/24 Smz./Tmp. [Bactrim Ds 800 MG/160 MG*] 1 tab PO BID #10 tab 06/06/24 Spironolactone [Aldactone*] 50 mg PO DAILY #30 tab 06/06/24 predniSONE [Deltasone*] 10 mg PO DAILY #30 tab 06/06/24 New Medications: Ipratropium Neb [Atrovent*] 0.5 mg NEB [id number] PRN #120 amp PRN Reason: Wheezing Albuterol Neb [Proventil 0.083% Neb Soln] 2.5 mg NEB [id number] PRN #120 amp PRN Reason: Wheezing Spironolactone [Aldactone*] 50 mg PO DAILY #30 tab Smz./Tmp. [Bactrim Ds 800 MG/160 MG*] 1 tab PO BID #10 tab predniSONE [Deltasone*] 10 mg PO DAILY #30 tab Nebulizer 1 each MC TID PRN #1 ea PRN Reason: Wheezing Diet: AHA Activity: Ad roxanna Followup: Kevin Craig MD [ACTIVE - CAN ADMIT] - 1 Day NONE,NONE [Primary Care Provider] - Time spent managing pt's care (in minutes): 33
[2024-06-06 10:19] VITALS: TEMP 97.5
== END 2024-06-06 09:53 | disposition home or self-care (01) | DRG 291 ==
LOC: ER 14:28 → ERHOLD 17:41 → 2ND 20:56 → 3RD-ICU 06-03 02:48
PROVIDERS: ADMIT Internal Medicine; ATTEND Internal Medicine
PROC: 4A133R1 Monitoring of Arterial Saturation, Peripheral, Percutaneous Approach (ICD-10-PCS; principal; 2024-06-02)
PROC: 5A09457 Assistance with Respiratory Ventilation, 24-96 Consecutive Hours, Continuous Positive Airway Pressure (ICD-10-PCS; 2024-06-03)
DX: I50.31 Acute diastolic (congestive) heart failure (principal); G93.41 Metabolic encephalopathy; J96.01 Acute respiratory failure with hypoxia; J96.02 Acute respiratory failure with hypercapnia; J44.1 Chronic obstructive pulmonary disease with (acute) exacerbation; E66.2 Morbid (severe) obesity with alveolar hypoventilation; E87.1 Hypo-osmolality and hyponatremia; Z68.44 Body mass index [BMI] 60.0-69.9, adult; F17.210 Nicotine dependence, cigarettes, uncomplicated; M25.511 Pain in right shoulder; T63.301A Toxic effect of unspecified spider venom, accidental (unintentional), initial encounter
CPT/HCPCS: 36415; 36600; 71045; 71275; 80048; 80053; 81003; 82805; 82947; 83735; 83880; 84100; 84443; 84484; 85025; 85379; 85610; 87070; 87205; 93005; 94660; 99285; J1650; J1940; J2919; J7613; J7644; Q9967